=== PATIENT | male | born 1950 | race Caucasian/White ===

== ENCOUNTER 2020-06-21 07:28 | Outpatient (CLI) | payer MEDICARE, SELFPAY ==
[2020-06-21 07:47] LABS: Basophils Absolute Auto 0.06 K/mm3 (0.00-0.10); Basophils Percent Auto 0.9 % (0.0-1.0); Eosinophils Absolute Auto 0.49 K/mm3 (0.02-0.50); Eosinophils Percent Auto 7.6 % (1.0-6.0); Hematocrit 42.1 % (37.0-46.0); Hemoglobin 13.9 g/dL (12.4-15.3); Immature Granulocyte Absolute 0.03 K/mm3 (0.00-0.00); Immature Granulocyte Percent A 0.5 % (0.0-0.0); Lymphocytes Absolute Auto 1.87 K/mm3 (1.10-4.50); Lymphocytes Percent Auto 28.9 % (18.0-42.0); Mean Corpuscular Hemoglobin 31.3 pg (27.0-31.0); Mean Corpuscular Volume 94.8 fL (78.0-102.0); Mean Platelet Volume 9.1 fl (8.7-11.0); Monocytes Absolute Auto 0.76 K/mm3 (0.10-0.90); Monocytes Percent Auto 11.7 % (2.0-11.0); Neutrophils Absolute Auto 3.3 K/mm3 (1.7-7.2); Neutrophils Percent Auto 50.4 % (50.0-70.0); Platelet Count Result 414 K/mm3 (150-420); Red Blood Count 4.44 M/mm3 (4.70-6.10); Red Cell Distribution Width 12.8 % (11.6-14.4); White Blood Count 6.5 K/mm3 (4.8-10.8)
[2020-06-21 08:02] LABS: Add Urine Microscopic? NO; Appearance Urine Clear (Clear); Bilirubin Urine Negative (Negative); Blood Urine Negative (Negative); Color Urine Yellow (Yellow); Glucose Urine UA Negative (Negative); Ketones Urine Negative (Negative); Leukocyte Esterase Ur Negative (Negative); Nitrate Urine Negative (Negative); Protein Urine Negative (Negative); Urobilinogen Urine 0.2 mg/dL (0.2-1.0)
[2020-06-21 08:33] LABS: Alanine Aminotransferase 40 U/L (16-63); Albumin Level 4.2 g/dL (3.4-5.0); Alkaline Phosphatase 56 U/L (46-116); Anion Gap 8 mmol/L (8-16); Aspartate Amino Transferase 16 U/L (15-37); Bilirubin,Total 0.5 mg/dL (0.00-1.00); Blood Urea Nitrogen 20 mg/dL (7-18); Carbon Dioxide 27 mmol/L (21-32); Chloride 106 mmol/L (98-108); Cholesterol 138 mg/dL (0-200); Creatine Kinase 152 U/L (39-308); Estimated Glomerular Filt Rate 53; Glucose 109 mg/dL (70-99); HDL Direct 39 mg/dL (40-60); LDL Cholesterol Calculated 71 mg/dL (<130); Osmolality Calculated 295 mOsm/kg (285-295); Sodium 141 mmol/L (136-145); Total Protein 7.1 g/dL (6.4-8.2); Triglycerides 142 mg/dL (0-150)
== END 2020-06-21 07:29 | disposition home or self-care (01) ==
PROVIDERS: PCP Internal Medicine; Visit Provider Internal Medicine
DX: E78.2 Mixed hyperlipidemia (principal); I10 Essential (primary) hypertension; Z85.46 Personal history of malignant neoplasm of prostate
CPT/HCPCS: 36415; 80053; 80061; 81003; 82550; 85025

== ENCOUNTER 2020-08-24 10:13 | Outpatient (CLI) | payer MEDICARE, SELFPAY ==
[2020-08-24 11:24] LABS: Anion Gap 10 mmol/L (8-16); Blood Urea Nitrogen 18 mg/dL (7-18); Calcium 9.5 mg/dL (8.5-10.1); Carbon Dioxide 27 mmol/L (21-32); Chloride 104 mmol/L (98-108); Estimated Glomerular Filt Rate 60; Glucose 107 mg/dL (70-99); Osmolality Calculated 293 mOsm/kg (285-295); Potassium 4.4 mmol/L (3.5-5.1); Sodium 141 mmol/L (136-145)
[2020-08-24 11:47] LABS: Prostate Specific Antigen < 0.1 ng/mL (< OR = 4.0)
== END 2020-08-24 10:14 | disposition home or self-care (01) ==
PROVIDERS: PCP Internal Medicine
DX: C61 Malignant neoplasm of prostate (principal); N18.2 Chronic kidney disease, stage 2 (mild)
CPT/HCPCS: 36415; 80048; 84153

== ENCOUNTER 2021-08-05 07:01 | Outpatient (CLI) | payer MEDICARE, SELFPAY ==
[2021-08-05 07:12] LABS: Basophils Absolute Auto 0.05 K/mm3 (0.00-0.10); Basophils Percent Auto 0.9 % (0.0-1.0); Eosinophils Absolute Auto 0.41 K/mm3 (0.02-0.50); Eosinophils Percent Auto 7.3 % (1.0-6.0); Hematocrit 44.4 % (37.0-46.0); Hemoglobin 14.8 g/dL (12.4-15.3); Immature Granulocyte Absolute 0.03 K/mm3 (0.00-0.00); Immature Granulocyte Percent A 0.5 % (0.0-0.0); Lymphocytes Absolute Auto 1.62 K/mm3 (1.10-4.50); Lymphocytes Percent Auto 28.8 % (18.0-42.0); Mean Corpuscular HGB Conc 33.3 g/dL (32.0-36.0); Mean Corpuscular Volume 95.9 fL (78.0-102.0); Monocytes Absolute Auto 0.68 K/mm3 (0.10-0.90); Monocytes Percent Auto 12.1 % (2.0-11.0); Neutrophils Absolute Auto 2.8 K/mm3 (1.7-7.2); Neutrophils Percent Auto 50.4 % (50.0-70.0); Platelet Count Result 384 K/mm3 (150-420); Red Blood Count 4.63 M/mm3 (4.70-6.10); Red Cell Distribution Width 12.9 % (11.6-14.4); White Blood Count 5.6 K/mm3 (4.8-10.8)
[2021-08-05 07:17] LABS: Add Urine Microscopic? NO; Appearance Urine Clear (Clear); Bilirubin Urine Negative (Negative); Blood Urine Negative (Negative); Color Urine Yellow (Yellow); Glucose Urine UA Negative (Negative); Ketones Urine Negative (Negative); Leukocyte Esterase Ur Negative (Negative); Nitrate Urine Negative (Negative); Protein Urine Negative (Negative); Urobilinogen Urine 0.2 mg/dL (0.2-1.0); pH Urine 6.5 (5.0-8.0)
[2021-08-05 07:27] LABS: Hemoglobin A1C 5.9 % (<5.7)
[2021-08-05 08:46] LABS: Alanine Aminotransferase 63 U/L (16-63); Alkaline Phosphatase 54 U/L (46-116); Anion Gap 10 mmol/L (8-16); Aspartate Amino Transferase 27 U/L (15-37); Bilirubin,Total 0.7 mg/dL (0.00-1.00); Blood Urea Nitrogen 17 mg/dL (7-18); Calcium 9.2 mg/dL (8.5-10.1); Carbon Dioxide 28 mmol/L (21-32); Chloride 104 mmol/L (98-108); Cholesterol 127 mg/dL (0-200); Creatine Kinase 109 U/L (39-308); Estimated Glomerular Filt Rate 57; Glucose 101 mg/dL (70-99); HDL Direct 43 mg/dL (40-60); LDL Cholesterol Calculated 63 mg/dL (<130); Osmolality Calculated 295 mOsm/kg (285-295); Potassium 4.6 mmol/L (3.5-5.1); Sodium 142 mmol/L (136-145); Total Protein 6.9 g/dL (6.4-8.2); Triglycerides 107 mg/dL (0-150)
== END 2021-08-05 07:02 | disposition home or self-care (01) ==
LOC: CHSLAB 07:02
PROVIDERS: PCP Internal Medicine; Visit Provider Internal Medicine
DX: R73.01 Impaired fasting glucose (principal); I10 Essential (primary) hypertension; E78.2 Mixed hyperlipidemia
CPT/HCPCS: 36415; 80053; 80061; 81003; 82550; 83036; 85025

== ENCOUNTER 2022-02-15 11:43 | Outpatient (CLI) | payer MEDICARE, SELFPAY ==
[2022-02-15 12:11] LABS: Basophils Absolute Auto 0.05 K/mm3 (0.00-0.10); Basophils Percent Auto 0.9 % (0.0-1.0); Eosinophils Absolute Auto 0.48 K/mm3 (0.02-0.50); Eosinophils Percent Auto 8.2 % (1.0-6.0); Hematocrit 43.3 % (37.0-46.0); Hemoglobin 14.9 g/dL (12.4-15.3); Immature Granulocyte Absolute 0.01 K/mm3 (0.00-0.00); Immature Granulocyte Percent A 0.2 % (0.0-0.0); Lymphocytes Absolute Auto 1.83 K/mm3 (1.10-4.50); Lymphocytes Percent Auto 31.3 % (18.0-42.0); Mean Corpuscular HGB Conc 34.4 g/dL (32.0-36.0); Mean Corpuscular Hemoglobin 32.3 pg (27.0-31.0); Mean Corpuscular Volume 93.7 fL (78.0-102.0); Mean Platelet Volume 9.2 fl (8.7-11.0); Monocytes Absolute Auto 0.77 K/mm3 (0.10-0.90); Monocytes Percent Auto 13.2 % (2.0-11.0); Neutrophils Absolute Auto 2.7 K/mm3 (1.7-7.2); Neutrophils Percent Auto 46.2 % (50.0-70.0); Platelet Count Result 390 K/mm3 (150-420); Red Blood Count 4.62 M/mm3 (4.70-6.10); Red Cell Distribution Width 12.7 % (11.6-14.4); White Blood Count 5.8 K/mm3 (4.8-10.8)
[2022-02-15 12:12] LABS: Add Urine Microscopic? YES; Appearance Urine Clear (Clear); Bilirubin Urine Negative (Negative); Blood Urine Negative (Negative); Color Urine Yellow (Yellow); Glucose Urine UA Negative (Negative); Ketones Urine Negative (Negative); Leukocyte Esterase Ur Trace (Negative); Nitrate Urine Negative (Negative); Protein Urine Negative (Negative); Specific Grav Ur >= 1.030 (1.010-1.020); Urobilinogen Urine 0.2 mg/dL (0.2-1.0); pH Urine 5.5 (5.0-8.0)
[2022-02-15 12:18] LABS: Bacteria Urine Trace /hpf; Mucus Urine Few /lpf; RBC Urine None seen /hpf (0-2); Squamous Epithelial Cell Urine Few /hpf (Few)
[2022-02-15 12:30] LABS: Hemoglobin A1C 5.8 % (<5.7)
[2022-02-15 13:31] LABS: Alanine Aminotransferase 60 U/L (16-63); Alkaline Phosphatase 69 U/L (46-116); Anion Gap 8 mmol/L (8-16); Aspartate Amino Transferase 30 U/L (15-37); Bilirubin,Total 0.5 mg/dL (0.00-1.00); Blood Urea Nitrogen 22 mg/dL (7-18); Calcium 9.1 mg/dL (8.5-10.1); Carbon Dioxide 25 mmol/L (21-32); Chloride 103 mmol/L (98-108); Cholesterol 129 mg/dL (0-200); Creatine Kinase 117 U/L (39-308); Estimated Glomerular Filt Rate 58; Glucose 107 mg/dL (70-99); HDL Direct 44 mg/dL (40-60); LDL Cholesterol Calculated 51 mg/dL (<130); Osmolality Calculated 285 mOsm/kg (285-295); Potassium 4.3 mmol/L (3.5-5.1); Sodium 136 mmol/L (136-145); Total Protein 6.9 g/dL (6.4-8.2); Triglycerides 172 mg/dL (0-150)
[2022-02-15 13:42] LABS: Prostate Specific Antigen < 0.1 ng/mL (< OR = 4.0)
== END 2022-02-15 11:44 | disposition home or self-care (01) ==
LOC: CHSLAB 11:47
PROVIDERS: PCP Internal Medicine; Visit Provider Internal Medicine
DX: R73.01 Impaired fasting glucose (principal); E78.2 Mixed hyperlipidemia; I10 Essential (primary) hypertension; Z85.46 Personal history of malignant neoplasm of prostate
CPT/HCPCS: 36415; 80053; 80061; 81001; 82550; 83036; 84153; 85025

== ENCOUNTER 2023-01-03 06:55 | Outpatient (CLI) | payer MEDICARE, SELFPAY ==
[2023-01-03 07:18] LABS: Appearance Urine Clear (Clear); Basophils Absolute Auto 0.04 K/mm3 (0.00-0.10); Basophils Percent Auto 0.6 % (0.0-1.0); Bilirubin Urine Negative (Negative); Blood Urine Negative (Negative); Color Urine Yellow (Yellow); Eosinophils Absolute Auto 0.36 K/mm3 (0.02-0.50); Eosinophils Percent Auto 5.6 % (1.0-6.0); Glucose Urine UA Negative (Negative); Hematocrit 43.3 % (37.0-46.0); Hemoglobin 15.1 g/dL (12.4-15.3); Immature Granulocyte Absolute 0.03 K/mm3 (0.00-0.00); Immature Granulocyte Percent A 0.5 % (0.0-0.0); Ketones Urine Negative (Negative); Leukocyte Esterase Ur Negative LEU/UL (Negative); Lymphocytes Absolute Auto 1.57 K/mm3 (1.10-4.50); Lymphocytes Percent Auto 24.6 % (18.0-42.0); Mean Corpuscular HGB Conc 34.9 g/dL (32.0-36.0); Mean Corpuscular Volume 94.5 fL (78.0-102.0); Mean Platelet Volume 8.9 fl (8.7-11.0); Monocytes Absolute Auto 0.67 K/mm3 (0.10-0.90); Monocytes Percent Auto 10.5 % (2.0-11.0); Neutrophils Absolute Auto 3.7 K/mm3 (1.7-7.2); Neutrophils Percent Auto 58.2 % (50.0-70.0); Nitrate Urine Negative (Negative); Platelet Count Result 362 K/mm3 (150-420); Protein Urine Negative (Negative); Red Blood Count 4.58 M/mm3 (4.70-6.10); Red Cell Distribution Width 13.5 % (11.6-14.4); White Blood Count 6.4 K/mm3 (4.8-10.8)
[2023-01-03 07:22] LABS: Add Urine Microscopic? NO
[2023-01-03 07:28] LABS: Hemoglobin A1C 5.9 % (<5.7)
[2023-01-03 07:47] LABS: Alanine Aminotransferase 45 U/L (16-63); Alkaline Phosphatase 52 U/L (46-116); Anion Gap 8 mmol/L (8-16); Aspartate Amino Transferase 23 U/L (15-37); Bilirubin,Total 0.7 mg/dL (0.00-1.00); Blood Urea Nitrogen 19 mg/dL (7-18); Calcium 8.8 mg/dL (8.5-10.1); Carbon Dioxide 29 mmol/L (21-32); Chloride 105 mmol/L (98-108); Cholesterol 130 mg/dL (0-200); Estimated Glomerular Filt Rate 60; Glucose 101 mg/dL (70-99); HDL Direct 38 mg/dL (40-60); LDL Cholesterol Calculated 69 mg/dL (<130); Osmolality Calculated 296 mOsm/kg (285-295); Potassium 4.4 mmol/L (3.5-5.1); Sodium 142 mmol/L (136-145); Total Protein 7.1 g/dL (6.4-8.2); Triglycerides 113 mg/dL (0-150)
[2023-01-03 08:03] LABS: Prostate Specific Antigen < 0.1 ng/mL (< OR = 4.0)
== END 2023-01-03 06:56 | disposition home or self-care (01) ==
LOC: CHSLAB 06:57
PROVIDERS: PCP Internal Medicine; Visit Provider Internal Medicine
DX: E78.2 Mixed hyperlipidemia (principal); I10 Essential (primary) hypertension; R73.01 Impaired fasting glucose; N39.0 Urinary tract infection, site not specified; N40.1 Benign prostatic hyperplasia with lower urinary tract symptoms
CPT/HCPCS: 36415; 80053; 80061; 81003; 83036; 84153; 85025

== ENCOUNTER 2023-08-30 06:49 | Outpatient (CLI) | payer MEDICARE, SELFPAY ==
[2023-08-30 07:04] LABS: Appearance Urine Clear (Clear); Basophils Absolute Auto 0.08 K/mm3 (0.00-0.10); Basophils Percent Auto 1.3 % (0.0-1.0); Bilirubin Urine Negative (Negative); Blood Urine Negative (Negative); Color Urine Light Yellow (Yellow); Eosinophils Absolute Auto 0.31 K/mm3 (0.02-0.50); Eosinophils Percent Auto 4.9 % (1.0-6.0); Glucose Urine UA Negative (Negative); Hematocrit 45.5 % (37.0-46.0); Hemoglobin 15.7 g/dL (12.4-15.3); Immature Granulocyte Absolute 0.03 K/mm3 (0.00-0.00); Immature Granulocyte Percent A 0.5 % (0.0-0.0); Ketones Urine Negative (Negative); Leukocyte Esterase Ur Negative LEU/UL (Negative); Lymphocytes Absolute Auto 1.66 K/mm3 (1.10-4.50); Lymphocytes Percent Auto 26.3 % (18.0-42.0); Mean Corpuscular HGB Conc 34.5 g/dL (32.0-36.0); Mean Corpuscular Hemoglobin 33.1 pg (27.0-31.0); Mean Corpuscular Volume 95.8 fL (78.0-102.0); Monocytes Absolute Auto 0.62 K/mm3 (0.10-0.90); Monocytes Percent Auto 9.8 % (2.0-11.0); Neutrophils Absolute Auto 3.6 K/mm3 (1.7-7.2); Neutrophils Percent Auto 57.2 % (50.0-70.0); Nitrate Urine Negative (Negative); Platelet Count Result 393 K/mm3 (150-420); Protein Urine Negative (Negative); Red Blood Count 4.75 M/mm3 (4.70-6.10); Red Cell Distribution Width 12.9 % (11.6-14.4); Specific Grav Ur 1.015 (1.010-1.020); Urobilinogen Urine 0.2 mg/dL (0.2-1.0); White Blood Count 6.3 K/mm3 (4.8-10.8); pH Urine 6.5 (5.0-8.0)
[2023-08-30 07:07] LABS: Add Urine Microscopic? NO
[2023-08-30 07:13] LABS: Hemoglobin A1C 5.9 % (<5.7)
[2023-08-30 07:51] LABS: Alanine Aminotransferase 50 U/L (16-63); Albumin Level 4.2 g/dL (3.4-5.0); Alkaline Phosphatase 49 U/L (46-116); Anion Gap 3 mmol/L (8-16); Aspartate Amino Transferase 21 U/L (15-37); Bilirubin,Total 0.7 mg/dL (0.00-1.00); Blood Urea Nitrogen 19 mg/dL (7-18); Calcium 9.4 mg/dL (8.5-10.1); Carbon Dioxide 32 mmol/L (21-32); Chloride 102 mmol/L (98-108); Cholesterol 138 mg/dL (0-200); Creatine Kinase 80 U/L (39-308); Estimated Glomerular Filt Rate 51; Glucose 112 mg/dL (70-99); HDL Direct 44 mg/dL (40-60); LDL Cholesterol Calculated 67 mg/dL (<130); Osmolality Calculated 287 mOsm/kg (285-295); Potassium 4.3 mmol/L (3.5-5.1); Sodium 137 mmol/L (136-145); Triglycerides 137 mg/dL (0-150)
== END 2023-08-30 06:50 | disposition home or self-care (01) ==
LOC: CHSLAB 06:51
PROVIDERS: PCP Internal Medicine; Visit Provider Internal Medicine
DX: N39.0 Urinary tract infection, site not specified (principal); E78.2 Mixed hyperlipidemia; I10 Essential (primary) hypertension; R73.01 Impaired fasting glucose
CPT/HCPCS: 36415; 80053; 80061; 81003; 82550; 83036; 85025

== ENCOUNTER 2023-09-28 11:22 | Outpatient (CLI) | payer MEDICARE, SELFPAY ==
[2023-09-28 12:18] LABS: Anion Gap 5 mmol/L (8-16); Blood Urea Nitrogen 15 mg/dL (7-18); Calcium 9.6 mg/dL (8.5-10.1); Carbon Dioxide 33 mmol/L (21-32); Chloride 102 mmol/L (98-108); Estimated Glomerular Filt Rate 56; Glucose 104 mg/dL (70-99); Osmolality Calculated 290 mOsm/kg (285-295); Potassium 4.4 mmol/L (3.5-5.1); Sodium 140 mmol/L (136-145)
== END 2023-09-28 11:23 | disposition home or self-care (01) ==
LOC: CHSLAB 11:24
PROVIDERS: PCP Internal Medicine; Visit Provider Internal Medicine
DX: I10 Essential (primary) hypertension (principal)
CPT/HCPCS: 36415; 80048

== ENCOUNTER 2024-04-05 07:22 | Outpatient (CLI) | payer MEDICARE, SELFPAY ==
[2024-04-05 08:33] LABS: Hematocrit 44.7 % (37.0-46.0); Hemoglobin 15.5 g/dL (12.4-15.3); Mean Corpuscular HGB Conc 34.7 g/dL (32-36); Mean Corpuscular Hemoglobin 32.4 pg (27.0-31.0); Mean Corpuscular Volume 93.3 fL (78.0-102.0); Mean Platelet Volume 9.1 fl (8.7-11.0); Platelet Count Result 352 K/mm3 (150-420); Red Blood Count 4.79 M/mm3 (4.70-6.10); Red Cell Distribution Width 12.6 % (11.6-14.4); White Blood Count 5.9 K/mm3 (4.8-10.8)
[2024-04-05 08:48] LABS: Alanine Aminotransferase 28 U/L (16-63); Albumin Level 3.8 g/dL (3.4-5.0); Alkaline Phosphatase 42 U/L (46-116); Anion Gap 9 mmol/L (4-12); Aspartate Amino Transferase 16 U/L (15-37); Bilirubin,Total 0.5 mg/dL (0.00-1.00); Blood Urea Nitrogen 19 mg/dL (7-18); Calcium 8.8 mg/dL (8.5-10.1); Carbon Dioxide 26 mmol/L (21-32); Chloride 106 mmol/L (98-108); Cholesterol 117 mg/dL (0-200); Estimated Glomerular Filt Rate 57; Glucose 113 mg/dL (70-99); HDL Direct 39 mg/dL (40-60); Hemoglobin A1C 5.3 % (<5.7); LDL Cholesterol Calculated 60 mg/dL (<130); Osmolality Calculated 295 mOsm/kg (285-295); Sodium 141 mmol/L (136-145); Total Protein 7.1 g/dL (6.4-8.2); Triglycerides 92 mg/dL (0-150)
[2024-04-05 13:58] LABS: Appearance Urine Clear (Clear); Bilirubin Urine Negative (Negative); Blood Urine Negative (Negative); Color Urine Yellow (Yellow); Glucose Urine UA Negative (Negative); Ketones Urine Negative (Negative); Leukocyte Esterase Ur Trace LEU/UL (Negative); Nitrate Urine Negative (Negative); Protein Urine Trace (Negative); Specific Grav Ur 1.025 (1.010-1.020); Urobilinogen Urine 0.2 mg/dL (0.2-1.0)
[2024-04-05 14:02] LABS: Add Urine Microscopic? YES
[2024-04-05 14:05] LABS: Mucus Urine Moderate /lpf; RBC Urine 0-2 /hpf (0-2); WBC Urine 0-3 /hpf (0-3)
== END 2024-04-05 07:23 | disposition home or self-care (01) ==
PROVIDERS: PCP Internal Medicine; Visit Provider Internal Medicine
DX: Z12.5 Encounter for screening for malignant neoplasm of prostate (principal); E78.2 Mixed hyperlipidemia; I10 Essential (primary) hypertension; N39.0 Urinary tract infection, site not specified; R73.01 Impaired fasting glucose
CPT/HCPCS: 36415; 80053; 80061; 81001; 83036; 85027

== ENCOUNTER 2024-12-08 06:54 | Outpatient (CLI) | payer MEDICARE, SELFPAY ==
--- OUTSIDE RECORDS SUMMARY | 2024-12-08 07:00 | XMS_ITS | Clinical Summary ---
Author Organization [facility] Address [address] [place] [address] Care Team Providers Care Cash Grain Farmer Name Role Phone Carolee Corona MD Primary Care Provider [phone] Allergies No known active allergies Medications fenofibrate 150 mg capsule Active ibuprofen (ibuprofen) 200 mg tab/cap Active amLODIPine (NORVASC) 10 mg tablet 10/08/2018 Active Active Problems No known active problems Surgical History Surgery Date Site/Laterality Comments KNEE SURGERY Knee Surgery - (Added by Conv) Family History Medical History Relation Name Comments Prostate cancer Father Family histo ry of malignant neoplasm of prostate - (Added by Conv) Heart attack Mother Family history of myocardial infarction - (Added by Conv) Stroke Mother Family history of cerebrovascular accident (CVA) - (Added by Conv) Relation Name Status Comments Father Mother Social History Tobacco Use Types Packs/Day Years Used Date Smoking Tobacco: Every Day Personal Safety Answer Date Recorded Getting School Help Needed Not on file 12/07 Sex and Gender Information Value Date Recorded Sex Assigned at Not on file Legal Sex Male 1:26 PM DELICATE FABRICS PRESSER Gender Identity Not on file Sexual Orientation Not on file Obstetrics History Last Filed Vital Signs Vital Sign Reading Time Taken Comments Blood Pressure 132/93 09/11/2017 1:31 PM DELICATE FABRICS PRESSER Pulse 106 09/11/2017 1:31 PM DELICATE FABRICS PRESSER Temperature - - Respiratory Rate - - Oxygen Saturation 96% 09/04/2017 8:20 AM DELICATE FABRICS PRESSER Inhaled Oxygen Concentration - - Weight 106.6 kg (234 lb 15.8 oz) 09/03/2017 4:55 PM DELICATE FABRICS PRESSER Height 182.9 cm (6') 09/03/2017 4:55 PM DELICATE FABRICS PRESSER Body Mass Index 31.87 09/03/2017 4:55 PM DELICATE FABRICS PRESSER Plan of Treatment Not on file Insurance MEDICARE MEDICARE Advance Directives For more information, please contact: [phone] Documents on File Type Date Recorded Patient Senior Architect Expl anation ADVANCE DIRECTIVE 09/13/2017 8:38 AM Care Teams Cash Grain Farmer Relationship Specialty Start Date End Date Carolee Corona MD [address] [place] [address] [facility] - General 08/14/17
--- OUTSIDE RECORDS SUMMARY | 2024-12-08 07:00 | XMS_ITS | Referral Summary ---
Author Organization [facility] Address [address] [place] [address] Care Team Providers Care Frothing Machine Operator Name Role Phone Carolee Corona MD Primary Care Provider [phone] Allergies No known active allergies Medications fenofibrate 150 mg capsule Active ibuprofen (ibuprofen) 200 mg tab/cap Active amLODIPine (NORVASC) 10 mg tablet 10/08/2018 Active Active Problems No known active problems Social History Tobacco Use Types Packs/Day Years Used Date Smoking Tobacco: Every Day Personal Safety Answer Date Recorded Getting School Help Needed Not on file 12/07 Sex and Gender Information Value Date Recorded Sex Assigned at Not on file Legal Sex Male 1:26 PM NUTRITION WORKER Gender Identity Not on file Sexual Orientation Not on file Last Filed Vital Signs Vital Sign Reading Time Taken Comments Blood Pressure 132/93 09/11/2017 1:31 PM NUTRITION WORKER Pulse 106 09/11/2017 1:31 PM NUTRITION WORKER Temperature - - Respiratory Rate - - Oxygen Saturation 96% 09/04/2017 8:20 AM NUTRITION WORKER Inhaled Oxygen Concentration - - Weight 106.6 kg (234 lb 15.8 oz) 09/03/2017 4:55 PM NUTRITION WORKER Height 182.9 cm (6') 09/03/2017 4:55 PM NUTRITION WORKER Body Mass Index 31.87 09/03/2017 4:55 PM NUTRITION WORKER Plan of Treatment Not on file Insurance MEDICARE MEDICARE Advance Directives For more information, please contact: [phone] Documents on File Type Date Recorded Patient Care Manager Expl anation ADVANCE DIRECTIVE 09/13/2017 8:38 AM Care Teams Frothing Machine Operator Relationship Specialty Start Date End Date Carolee Corona MD [address] [place] [address] PCP - General 08/14/17
--- OUTSIDE RECORDS SUMMARY | 2024-12-08 07:00 | XMS_ITS | Encounter Summary ---
Author Organization [facility] Address [address] [place] [address] Phone Care Team Providers Care Contract Mail Carrier Name Role Phone Carolee Corona MD Primary Care Provider [phone] Encounter Details Date Type Department Care Team (Late st Contact Info) Description 06/21/2020 Telephone [facility] - [facility] Urology [address] [place] [phone] Elissa Duque MA Social History Tobacco Use Types Packs/Day Years Used Date Smoking Tobacco: Every Day Sex and Gender Information Value Date Recorded Sex Assigned at Not on file Legal Sex Male 1:26 PM UKE DRIVER Gender Identity Not on file Sexual Orientation Not on file documented as of this encounter Plan of Treatment Not on file documented as of this encounter Visit Diagnoses Not on filedocumented in this encounter Care Teams Contract Mail Carrier Relationship Specialty Start Date End Date Carolee Corona MD [address] [place] [address] PCP - General 08/14/17 documented as of this encounter
[2024-12-08 07:21] LABS: Add Urine Microscopic? NO; Appearance Urine Clear (Clear); Bilirubin Urine Negative (Negative); Blood Urine Trace-intact (Negative); Color Urine Light Yellow (Yellow); Glucose Urine UA Negative (Negative); Hematocrit 45.7 % (37.0-46.0); Hemoglobin 15.3 g/dL (12.4-15.3); Ketones Urine Negative (Negative); Leukocyte Esterase Ur Negative (Negative); Mean Corpuscular HGB Conc 33.5 g/dL (32-36); Mean Corpuscular Hemoglobin 32.1 pg (27.0-31.0); Mean Platelet Volume 9.1 fl (8.7-11.0); Nitrate Urine Negative (Negative); Platelet Count Result 402 K/mm3 (150-420); Protein Urine Negative (Negative); Red Blood Count 4.76 M/mm3 (4.70-6.10); Red Cell Distribution Width 12.8 % (11.6-14.4); Urobilinogen Urine 0.2 mg/dL (0.2-1.0); White Blood Count 7.1 K/mm3 (4.8-10.8)
[2024-12-08 07:29] LABS: Hemoglobin A1C 5.9 % (<5.7)
[2024-12-08 08:39] LABS: Alanine Aminotransferase 45 U/L (16-63); Albumin Level 4.1 g/dL (3.4-5.0); Alkaline Phosphatase 65 U/L (46-116); Anion Gap 6 mmol/L (4-12); Aspartate Amino Transferase 14 U/L (15-37); Bilirubin,Total 0.6 mg/dL (0.00-1.00); Blood Urea Nitrogen 17 mg/dL (7-18); Calcium 9.8 mg/dL (8.5-10.1); Carbon Dioxide 30 mmol/L (21-32); Chloride 106 mmol/L (98-108); Cholesterol 141 mg/dL (0-200); Creatine Kinase 77 U/L (39-308); Estimated Glomerular Filt Rate 59; Glucose 109 mg/dL (70-99); HDL Direct 48 mg/dL (40-60); LDL Cholesterol Calculated 64 mg/dL (<130); Osmolality Calculated 296 mOsm/kg (285-295); Potassium 4.4 mmol/L (3.5-5.1); Prostate Specific Antigen < 0.1 ng/mL (< OR = 4.0); Sodium 142 mmol/L (136-145); Total Protein 7.1 g/dL (6.4-8.2); Triglycerides 144 mg/dL (0-150)
== END 2024-12-08 06:55 | disposition home or self-care (01) ==
LOC: CHSLAB 06:58
PROVIDERS: PCP Internal Medicine; Visit Provider Internal Medicine
DX: E78.2 Mixed hyperlipidemia (principal); M15.9 Polyosteoarthritis, unspecified; I10 Essential (primary) hypertension; Z85.46 Personal history of malignant neoplasm of prostate; R73.01 Impaired fasting glucose
CPT/HCPCS: 36415; 80053; 80061; 81003; 82550; 83036; 84153; 85027

== ENCOUNTER 2025-01-20 14:10 | Outpatient (CLI) | payer MEDICARE, SELFPAY ==
--- NOTE | ~2025-01-20 | XR_ITS ---
Clinical Indication: Wheezing, cough PA and lateral views of the chest: Comparison: None Findings: There is hazy airspace opacity at the lingula. Right lung clear. Cardiomediastinal silhoue tte is within normal limits. Bones and soft tissues are unremarkable. Impression: Suspected focal lingular pneumonia. Reviewed, dictated and finalized at [facility]. Impression: Suspected focal lingular pneumonia.
[2025-01-20 14:28] LABS: Hematocrit 45.3 % (37.0-46.0); Hemoglobin 15.3 g/dL (12.4-15.3); Mean Corpuscular HGB Conc 33.8 g/dL (32-36); Mean Corpuscular Volume 94.8 fL (78.0-102.0); Platelet Count Result 395 K/mm3 (150-420); Red Blood Count 4.78 M/mm3 (4.70-6.10); Red Cell Distribution Width 12.5 % (11.6-14.4)
[2025-01-20 15:04] LABS: Influenza A QL RT-PCR Negative (Negative); Influenza B QL RT-PCR Negative (Negative); RSV RNA, RT-PCR Negative (Negative); SARS-CoV-2 RNA PCR Negative (Negative)
--- OUTSIDE RECORDS SUMMARY | 2025-01-20 15:30 | XMS_ITS | Encounter Summary ---
Author Organization [facility] Address [address] [place] [address] Phone Care Team Providers Care Vegetable Picker Name Role Phone Carolee Corona MD Primary Care Provider [phone] Encounter Details Date Type Department Care Team (Late st Contact Info) Description 06/21/2020 Telephone [facility]) - [facility] Urology [address] [place] [address] Medical Office Building [address] [place] [phone] Elissa Duque MA Social History Tobacco Use Types Packs/Day Years Used Date Smoking Tobacco: Every Day Sex and Gender Information Value Date Recorded Sex Assigned at Not on file Legal Sex Male 1:26 PM BATT PACKER Gender Identity Not on file Sexual Orientation Not on file documented as of this encounter Plan of Treatment Not on file documented as of this encounter Visit Diagnoses Not on filedocumented in this encounter Care Teams Vegetable Picker Relationship Specialty Start Date End Date Carolee Corona MD [address] [place] [address] PCP - General 08/14/17 documented as of this encounter
--- OUTSIDE RECORDS SUMMARY | 2025-01-20 15:30 | XMS_ITS | Clinical Summary ---
Author Organization [facility] [employer] Address [address] [place] [address] Care Team Providers Care R D Engineer Name Role Phone Smooth Baron MD Primary Care Provider [phone] Adiel Vizcarra MD Unavailable [phone] Nathalie Mckenzie MD Unavailable [phone] Source Comments [facility],non-owned Affiliates and Associated Physician Practices is amultiple site organization consisting of ambulatory clinics and hospital sitesin [place], [place], [place] and [place]. This disclosure is being madepursuant to the Care Everywhere program and may not contain all information available regarding this patient. Last updated 18.[facility] [employer] Allergies No known active allergies Medications * Be aware that medications may not be up to date on this document. Alwaysverify current medications with the patient. amLODIPine (NORVASC) 10 MG tablet Take 10 mg by mouth once daily 1 Active fenofibrate (LOFIBRA) 160 MG tablet Take 160 mg by mouth once daily Active loratadine-pseu doephedrine 24hr (CLARITIN-D 24 HOUR) 10-240 MG tablet Take 1 tablet by mouth once daily as needed for Nasal Congestion or Runny Nose Active docusate sodium (COLACE) 100 MG capsule Take 100 mg by mouth once daily as needed for Constipation Active celecoxib (CELEBREX) 200 MG capsule Take 1 (one) capsule by mouth 2 times daily 60 capsule 2 Active HYDROcodone-edison taminophen ([place]) 10-325 MG tablet TAKE HALF TO ONE TABLET BY MOUTH EVERY SIX HOURS NEEDED FOR PAIN 28 tablet 2 Active Active Problems Problem Noted Date Diagnosed Date Primary osteoarthritis of both knees 12/20/2021 Social History Tobacco Use Types Packs/Day Years Used Date Smoking Tobacco: Some Days Cigars Smokeless Tobacco: Never Comments:Smokes Cigar Occasi onally Alcohol Use Standard Drinks/Week Comments Not Currently 0 (1 standard drink = 0.6 oz pur e alcohol) AUDIT-C Answer Date Recorded Q1: How often do you have a drink containing alc ohol? Monthly or less 04/10/2022 Q2: How many drinks containi ng alcohol do you have on a typical day when you are drinking? 1 or 2 04/10/2022 Q3: How often do you have si x or more drinks on one occasion? Never 04/10/2022 Hunger Vital Sign Answer Date Recorded Within the past 12 months, y ou worried that your food would run out before you got the money to buy more. Never true 04/11/20 22 Within the past 12 months, t he food you bought just didn't last and you didn't have money to get more. Never true 04/11/2022 Sex and Gender Information Value Date Recorded Sex Assigned at Not on file Legal Sex Male 1:59 PM RIVETING MACHINE OPERATOR Gender Identity Not on file Sexual Orientation Not on file Last Filed Vital Signs Vital Sign Reading Time Taken Comments Blood Pressure 147/80 04/11/2022 10:09 AM CDT Pulse 86 04/11/2022 10:09 AM CDT Temperature 36.5 C (97.7 F) 04/11/2022 8:06 AM CDT Respiratory Rate 16 04/11/2022 8:06 AM CDT Oxygen Saturation 95% 04/11/2022 8:06 AM CDT Inhaled Oxygen Concentration - - Weight 115.7 kg (255 lb) 04/10/2022 7:55 AM CDT Height 177.8 cm (5' 10 ) 04/10/2022 7:55 AM CDT Body Mass Index 36.59 04/10/2022 7:55 AM CDT Plan of Treatment Health Maintenance Due Date Last Done Comments KIMBERLY (AGES 45-75) - COL ON CA SCREENING 1951 COLON MONITORING 1951 COLONOSCOPY - COLON CA SCREENING 1951 CT COLONOGRAPHY - COLON CA SCREENING 1950 Colorectal Cancer Screening 1950 FIT - COLON CA SCREENING 1951 FLEX SIG - COLON CA SCREENING 1951 LIPID TESTING 1950 MEDICARE AWV 12 MONTHS 1951 HEPATITIS C SCREENING 11/08/1969 DTAP/TDAP/TD VACCINES (1 - Tdap) 1970 PNEUMOCOCCAL VACCINE 50+ (1 of 2 - PCV) 1970 ZOSTER VACCINE (1 of 2) 2001 AAA SCREENING 2016 SCREENING FOR DIABETES 12/13/2021 COVID-19 VACCINE (3 - 2023-2 5 season) 2024 12/24/2020, 11/26/2020 DEPRESSION SCREENING 09/24/2024 INFLUENZA VACCINE (Season Ended) 2025 06/21/2020 Respiratory Syncytial Virus (RSV) Vaccine Pt: or over 60 yrs (1 - 1-dose 75+ series) 2026 HEPATITIS B VACCINE Aged Out No longe r eligible based on patient's age to complete this topic HIB VACCINE Aged Out No longer eligi ble based on patient's age to complete this topic HPV VACCINE Aged Out No longer eligi ble based on patient's age to complete this topic MENINGOCOCCAL (Group B) VACCINE SHARED DECISION-MAKING Aged Out No longer eligible based on patient's age to complete this topic MENINGOCOCCAL GROUPS A/C/Y/W VACCINE Aged Out No longer eligible b ased on patient's age to complete this topic Medical Devices Implanted Type Area Chili Maker Device Identifier Shelf Expiration Date Model / Serial / Lot Cmnt Bone Djo Srg Cblt 40gm Hvisc Strl Implanted:Qty: 2 on 04/10/2022 by Adiel Vizcarra MD at [facility] Left: Knee DJ Orthopedics 04/06/2023 600-15-000 / / [id number] Tray Tib 83mm Kn Cocr I Beam Implanted:Qty: 1 on 04/10/2022 by Adiel Vizcarra MD at [facility] Left: Knee Santi Biomet 02/25/2031 [id number] / / [id number] Cmpnt Fem Kn Lt Cr Cmnt Prm Vngrd Intlk Implanted:Qty: 1 on 04/10/2022 by Adiel Vizcarra MD at [facility] Left: Knee [employer] 09/08/2027 [id number] / / [id number] Cmpnt Ptlr 28mm 1 Pg Wire Ascnt Arcm Kn Implanted:Qty: 1 on 04/10/2022 by Adiel Vizcarra MD at [facility] Left: Knee S[employer] 03/02/2027 [id number] / / [id number] Vngrd Arcm Kn Ant Stab Implanted:Qty: 1 on 04/10/2022 by Adiel Vizcarra MD at [facility] Left: Knee S[employer]omet 02/06/2027 [id number] / / [id number] Insurance MEDICARE [employer] GENERIC Advance Directives * Full Code (Latest Code Status on File) Date Activated Date Inactivated Comments 04/10/2022 12:47 PM 04/11/2022 2:44 PM Care Teams R D Engineer Relationship Specialty Start Date End Date Smooth Baron MD [address] [place] [address] PCP - General Internal Medicine 12/13/21 [place] [address] [place] [address] Surgeon Orthopedic Surgery 12/13/21 [place] [address] [place] [address] Cardiovascular Disease 03/22/22
--- OUTSIDE RECORDS SUMMARY | 2025-01-20 15:30 | XMS_ITS | Referral Summary ---
Author Organization [facility] Address [address] [place] [address] Care Team Providers Care Latent Fingerprint Examiner Name Role Phone Carolee Corona MD Primary Care Provider [phone] Allergies No known active allergies Medications fenofibrate [...] on file Legal Sex Male 1:26 PM TRAFFIC CONTROL SPECIALIST Gender Identity Not on file Sexual Orientation Not on file Last Filed Vital Signs Vital Sign Reading Time Taken Comments Blood Pressure 132/93 09/11/2017 1:31 PM TRAFFIC CONTROL SPECIALIST Pulse 106 09/11/2017 1:31 PM TRAFFIC CONTROL SPECIALIST Temperature - - Respiratory Rate - - Oxygen Saturation 96% 09/04/2017 8:20 AM TRAFFIC CONTROL SPECIALIST Inhaled Oxygen Concentration - - Weight 106.6 kg (234 lb 15.8 oz) 09/03/2017 4:55 PM TRAFFIC CONTROL SPECIALIST Height 182.9 cm (6') 09/03/2017 4:55 PM TRAFFIC CONTROL SPECIALIST Body Mass Index 31.87 09/03/2017 4:55 PM TRAFFIC CONTROL SPECIALIST Plan of Treatment Not on file Insurance MEDICARE MEDICARE Advance Directives For more information, please contact: [phone] Documents on File Type Date Recorded Patient Radioisotope Production Operator Expl anation ADVANCE DIRECTIVE 09/13/2017 8:38 AM Care Teams Latent Fingerprint Examiner Relationship Specialty Start Date End Date Carolee Corona MD [address] [place] [address] PCP - General 08/14/17
--- OUTSIDE RECORDS SUMMARY | 2025-01-20 15:30 | XMS_ITS | Clinical Summary ---
Author Organization [facility] Address [address] [place] [address] Care Team Providers Care Electrical Engineering Drafting Officer Name Role Phone Carolee Corona MD Primary Care Provider [phone] Allergies No known active allergies Medications fenofibrate [...] on file Legal Sex Male 1:26 PM ARMATURE WINDER HELPER REPAIR Gender Identity Not on file Sexual Orientation Not on file Obstetrics History Last Filed Vital Signs Vital Sign Reading Time Taken Comments Blood Pressure 132/93 09/11/2017 1:31 PM ARMATURE WINDER HELPER REPAIR Pulse 106 09/11/2017 1:31 PM ARMATURE WINDER HELPER REPAIR Temperature - - Respiratory Rate - - Oxygen Saturation 96% 09/04/2017 8:20 AM ARMATURE WINDER HELPER REPAIR Inhaled Oxygen Concentration - - Weight 106.6 kg (234 lb 15.8 oz) 09/03/2017 4:55 PM ARMATURE WINDER HELPER REPAIR Height 182.9 cm (6') 09/03/2017 4:55 PM ARMATURE WINDER HELPER REPAIR Body Mass Index 31.87 09/03/2017 4:55 PM ARMATURE WINDER HELPER REPAIR Plan of Treatment Not on file Insurance MEDICARE MEDICARE Advance Directives For more information, please contact: [phone] Documents on File Type Date Recorded Patient Roll Hand Expl anation ADVANCE DIRECTIVE 09/13/2017 8:38 AM Care Teams Electrical Engineering Drafting Officer Relationship Specialty Start Date End Date Carolee Corona MD [address] [place] [address] [facility] - General 08/14/17
== END 2025-01-20 14:11 | disposition home or self-care (01) ==
LOC: CHSLAB 14:13
PROVIDERS: PCP Internal Medicine; Visit Provider Internal Medicine
DX: R05.9 Cough, unspecified (principal); J18.9 Pneumonia, unspecified organism
CPT/HCPCS: 36415; 71046; 85027; 87637

== ENCOUNTER 2025-01-26 13:05 | Outpatient (CLI) | payer MEDICARE, SELFPAY ==
--- NOTE | ~2025-01-26 | XR_ITS ---
XR chest 2V Ordering provider: Smooth Baron MD History: 74 years Male with . pneumonia FOLLOW UP,COUGH . Comparison: January 20, 2025 FINDINGS: MEDIASTINUM: The cardiac silhouette is not enlarged. LUNGS: No infiltrates, effusions or pneumothorax. Previously seen opacity in the left lower lobe is r esolved. OTHER: No free air under the diaphragm. Degenerative spine. IMPRESSION: No acute cardiopulmonary pathology. Reviewed, dictated and finalized at location A.
--- OUTSIDE RECORDS SUMMARY | 2025-01-26 13:51 | XMS_ITS | Clinical Summary ---
Author Organization [facility] [email or web address] Address [address] [place] [address] Care Team Providers Care Drapery Seamstress Name Role Phone Smooth Baron MD Primary Care Provider [phone] Adile Vizcarra MD Unavailable [phone] Nathalie Mckenzie MD Unavailable [phone] Source Comments [facility],non-owned Affiliates and Associated Physician Practices is amultiple site organization consisting of ambulatory clinics and hospital sitesin [place], [place], [place] and [place]. This disclosure is being madepursuant to the Care Everywhere program and may not contain all information available regarding this patient. Last updated 18.[facility] [email or web address] Allergies No known active allergies Medications * [...] daily 60 capsule 2 Active HYDROcodone-edison taminophen ([place]) 10-325 MG tablet TAKE HALF TO ONE [...] on file Legal Sex Male 1:59 PM INSOLE TAPER Gender Identity Not on file Sexual Orientation [...] this topic Medical Devices Implanted Type Area Bike Designer Device Identifier Shelf Expiration Date Model / Serial / Lot Cmnt Bone Djo Srg Cblt 40gm Hvisc Strl Implanted:Qty: 2 on 04/10/2022 by Adiel Vizcarra MD at [facility] Left: Knee DJ Orthopedics 04/06/2023 600-15-000 / / [id number] Tray Tib 83mm Kn Cocr I Beam Implanted:Qty: 1 on 04/10/2022 by Adiel Vizcarra MD at [facility] Left: Knee S[employer] 02/25/2031 [id number] / / [id number] Cmpnt Fem Kn Lt Cr Cmnt Prm Vngrd Intlk Implanted:Qty: 1 on 04/10/2022 by Adiel Vizcarra MD at [facility] Left: Knee S[employer] 09/08/2027 [id number] / / [id number] Cmpnt Ptlr 28mm 1 Pg Wire Ascnt Arcm Kn Implanted:Qty: 1 on 04/10/2022 by Adiel Vizcarra MD at [facility] Left: Knee S[employer]omet 03/02/2027 [id number] / / [id number] [id number] Vngrd Arcm Kn Ant Stab Implanted:Qty: 1 on 04/10/2022 by Adiel Vizcarra MD at [facility] Left: Knee Santi Biomet 02/06/2027 [id number] / / [id number] Insurance MEDICARE [employer] GENERIC Advance Directives * Full Code (Latest Code Status on File) Date Activated Date Inactivated Comments 04/10/2022 12:47 PM 04/11/2022 2:44 PM Care Teams Drapery Seamstress Relationship Specialty Start Date End Date Smooth Baron MD [address] [place] [address] PCP - General Internal Medicine 12/13/21 [place] [address] [place] [address] Surgeon Orthopedic Surgery 12/13/21 [place] [address] [place] [address] Cardiovascular Disease 03/22/22
== END 2025-01-26 13:06 | disposition home or self-care (01) ==
LOC: CHSIMG 13:15
PROVIDERS: PCP Internal Medicine; Visit Provider Internal Medicine
DX: J18.9 Pneumonia, unspecified organism (principal)
CPT/HCPCS: 71046

== ENCOUNTER 2025-03-27 12:26 | Emergency (ER) | payer MEDICARE, SELFPAY ==
--- NOTE | ~2025-03-27 | CT_ITS ---
CLINICAL INDICATION: Left groin pain COMPARISON: None. TECHNIQUE: Multiple contiguous axial images of the abdomen and pelvis were performed following the ad ministration of with 100 mL Omnipaque-350 intravenous contrast The dose-length product (DLP) was 1115.50 mGy-cm. Automated exposure control and iterative reconstruction technique were employed. FINDINGS/OBSERVATIONS: Visualized lower thorax: Elevation of the left hemidiaphragm with adjacent compressive atelectasis. The remainder of the bilateral lung bases are clear. The heart is of normal size, without pericardial effusion. Small hiatal hernia is present. Liver: The liver demonstrates homogeneous enhancement and is not enlarged. Gallbladder and biliary system: The gallbladder is distended, and otherwise unremarkable. Pancreas: The pancreas enhances homogeneously without ductal dilatation. Spleen: The spleen enhances homogeneously and is not enlarged measuring 8 cm in longitudinal dimension. Kidneys: The bilateral kidneys enhance symmetrically without hydronephrosis or renal calculi. Adrenal glands: Unremarkable. Gastrointestinal tract: Colonic diverticulosis without surrounding inflammatory change. Fecal stasis within the colon. A fat containing left inguinal hernia is identified with a single loop of stool-filled sigmoid colon and surrounding inflammatory change, likely the source of patient's discomfort. No evidence of bowel obstruction is noted (at this time). Appendix: The air-filled appendix is of normal caliber (axial series, images 120 through 137.) Vasculature: Calcified atherosclerotic disease.. Lymph nodes: No pathologically enlarged or morphologically suspicious lymph nodes within the retroperitoneum or at the root of the mesentery. Pelvic structures: The bladder is minimally distended, and otherwise unremarkable. The prostate gland is not enlarged, but contains a large bulky calcification. Body wall and musculoskeletal: Small fat-containing umbilical hernia. A fat containing left inguinal hernia is identified with a single loop of stool-filled sigmoid colon and surrounding inflammatory change, likely the source of patient's discomfort. No evidence of bowel obstruction is noted (at this time). Age-appropriate degenerative disease within the lower chest and lumbosacral spine. IMPRESSION: A fat containing left inguinal hernia is identified with a single loop of stool-filled sigmoid colon and surrounding inflammatory change, likely the source of patient's discomfort. No evidence of bowel obstruction is noted (at this time). Reviewed, dictated and finalized at location A. IMPRESSION: A fat containing left inguinal hernia is identified with a single loop of stool -filled sigmoid colon and surrounding inflammatory change, likely the source of patient's discomfort. No evidence of bowel obstruction is noted (at this time).
--- OUTSIDE RECORDS SUMMARY | 2025-03-27 12:28 | XMS_ITS | Clinical Summary ---
Author Organization [facility] Address [address] [place] [address] Care Team Providers Care Criminal Justice Social Worker Name Role Phone Carolee Corona MD Primary Care Provider [phone] Allergies No known active allergies Medications fenofibrate [...] on file Legal Sex Male 1:26 PM CUSTOM GRINDER Gender Identity Not on file Sexual Orientation Not on file Obstetrics History Last Filed Vital Signs Vital Sign Reading Time Taken Comments Blood Pressure 132/93 09/11/2017 1:31 PM CUSTOM GRINDER Pulse 106 09/11/2017 1:31 PM CUSTOM GRINDER Temperature - - Respiratory Rate - - Oxygen Saturation 96% 09/04/2017 8:20 AM CUSTOM GRINDER Inhaled Oxygen Concentration - - Weight 106.6 kg (234 lb 15.8 oz) 09/03/2017 4:55 PM CUSTOM GRINDER Height 182.9 cm (6') 09/03/2017 4:55 PM CUSTOM GRINDER Body Mass Index 31.87 09/03/2017 4:55 PM CUSTOM GRINDER Plan of Treatment Not on file Insurance MEDICARE MEDICARE Advance Directives For more information, please contact: [phone] Documents on File Type Date Recorded Patient Tieing Machine Operator Expl anation ADVANCE DIRECTIVE 09/13/2017 8:38 AM Care Teams Criminal Justice Social Worker Relationship Specialty Start Date End Date Carolee Corona MD [address] [place] [address] [facility] - General 08/14/17
--- OUTSIDE RECORDS SUMMARY | 2025-03-27 12:28 | XMS_ITS | Clinical Summary ---
Author Organization [facility] [employer] Address [address] [place] [address] Care Team Providers Care Confectionery Maker Name Role Phone Smooth Baron MD Primary Care Provider [phone] Adiel Vizcarra MD Unavailable [phone] Nathalie Mckenzie MD Unavailable [phone] Source Comments [facility],non-owned Affiliates and Associated Physician Practices is amultiple site organization consisting of ambulatory clinics and hospital sitesin [place], [place], [place] and [place]. This disclosure is being madepursuant to the Care Everywhere program and may not contain all information available regarding this patient. Last updated 18.[facility] [employer] Allergies No known active allergies Medications * [...] daily 60 capsule 2 Active HYDROcodone-edison taminophen ([place]) 10-325 MG tablet TAKE HALF TO ONE [...] on file Legal Sex Male 1:59 PM PIGSKIN TRIMMER Gender Identity Not on file Sexual Orientation [...] 7:55 AM CDT Height 177.8 cm (5' 10) 04/10/2022 7:55 AM CDT Body Mass Index [...] this topic Medical Devices Implanted Type Area Clinical Information Systems Director Device Identifier Shelf Expiration Date Model / Serial / Lot Cmnt Bone Djo Srg Cblt 40gm Hvisc Strl Implanted:Qty: 2 on 04/10/2022 by Adiel Vizcarra MD at [facility] Left: Knee DJ Orthopedics 04/06/2023 600-15-000 / / [id number] Tray Tib 83mm Kn Cocr I Beam Implanted:Qty: 1 on 04/10/2022 by Adiel Vizcarra MD at [facility] Left: Knee S[employer] 02/25/2031 [id number] / / [id number] Cmpnt Fem Kn Lt Cr Cmnt Prm Vngrd Intlk Implanted:Qty: 1 on 04/10/2022 by Adiel Vizcarra MD at [facility] Left: Knee [employer] 09/08/2027 [id number] / / [id number] Cmpnt Ptlr 28mm 1 Pg Wire Ascnt Arcm Kn Implanted:Qty: 1 on 04/10/2022 by Adiel Vizcarra MD at [facility] Left: Knee [employer] 03/02/2027 [id number] / / [id number] Vngrd Arcm Kn Ant Stab Implanted:Qty: 1 on 04/10/2022 by Adiel Vizcarra MD at [facility] Left: Knee S[employer] 02/06/2027 [id number] / / [id number] Insurance MEDICARE [employer] [place] GENERIC Advance Directives * Full Code (Latest Code Status on File) Date Activated Date Inactivated Comments 04/10/2022 12:47 PM 04/11/2022 2:44 PM Care Teams Confectionery Maker Relationship Specialty Start Date End Date Smooth Baron MD [address] [place] [address] PCP - General Internal Medicine 12/13/21 [place] [address] [place] [address] Surgeon Orthopedic Surgery 12/13/21 [place] [address] [place] [address] Cardiovascular Disease 03/22/22
--- OUTSIDE RECORDS SUMMARY | 2025-03-27 12:28 | XMS_ITS | Encounter Summary ---
Author Organization [facility] Address [address] [place] [address] Phone Care Team Providers Care Centrifugal Station Operator Name Role Phone Carolee Corona MD Primary Care Provider [phone] Encounter Details Date Type Department Care Team (Late st Contact Info) Description 06/21/2020 Telephone [facility]) - [facility] Urology [address] [place] [address] Medical Office Building [address] [place] [phone] Elissa Duque MA Social History Tobacco Use Types Packs/Day Years Used Date Smoking Tobacco: Every Day Sex and Gender Information Value Date Recorded Sex Assigned at Not on file Legal Sex Male 1:26 PM COFFEE SHOP AIDE Gender Identity Not on file Sexual Orientation Not on file documented as of this encounter Plan of Treatment Not on file documented as of this encounter Visit Diagnoses Not on filedocumented in this encounter Care Teams Centrifugal Station Operator Relationship Specialty Start Date End Date Carolee Corona MD [address] [place] [address] PCP - General 08/14/17 documented as of this encounter
--- OUTSIDE RECORDS SUMMARY | 2025-03-27 12:28 | XMS_ITS | Referral Summary ---
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 Gender Identity Not on file Sexual Orientation Not on file Last Filed Vital Signs Vital Sign Reading Time Taken Comments Blood Pressure 132/93 09/11/2017 1:31 PM INSURANCE ASSISTANT Pulse 106 09/11/2017 1:31 PM INSURANCE ASSISTANT Temperature - - Respiratory Rate - - Oxygen Saturation 96% 09/04/2017 8:20 AM INSURANCE ASSISTANT Inhaled Oxygen Concentration - - Weight 106.6 kg (234 lb 15.8 oz) 09/03/2017 4:55 PM INSURANCE ASSISTANT Height 182.9 cm (6') 09/03/2017 4:55 PM INSURANCE ASSISTANT Body Mass Index 31.87 09/03/2017 4:55 PM INSURANCE ASSISTANT Plan of Treatment Not on file Insurance MEDICARE MEDICARE Advance Directives For more information, please contact: [phone] Documents on File Type Date Recorded Patient Manager Of Pmo Expl anation ADVANCE DIRECTIVE 09/13/2017 8:38 AM Care Teams Reverse Logistics Analyst Relationship Specialty Start Date End Date Carolee Corona MD [address] [place] [address] PCP - General 08/14/17
[2025-03-27 12:29] VITALS: BP 146/95; PULSE 98; RESP 18; TEMP 36.6; O2SAT 97
--- NOTE | 2025-03-27 12:38 | ED_ITS ---
HPI - General Adult General Chief complaint: Urogenital-Male Stated complaint: groin swelling History of Present Illness HPI narrative: Willy is a 74M with a PMH of prostate cancer and hypertension that presented to the ED with left inquinal pain. It has been waxing and waning over the last month. It is worse with coughing and heavy lifting. 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 No CP, dyspnea, diarrhea or vomiting. Last BM yesterday morning. Related Data Allergies Allergy/AdvReac Type Severity Reaction Status Date / Time No Known Allergies Allergy Verified 03/16/22 12:43 Review of Systems 2 Review of Systems: All systems reviewed & are unremarkable except as noted in HPI and below PMFSH Family History Family History Mother Acute myocardial infarction Social History Social History Smoking status: Former smoker Exam 2 Const: General: cooperative, healthy appearing, comfortable, no acute distress, well developed, alert, awake and Physically active O rientation/consciousness: oriented to person, oriented to place and oriented to time HENMT: Head: normal to inspection, normocephalic and atraumatic Ears: h earing grossly normal bilaterally and external ears normal Face/Nose/Sinus: N ormal external nose present Eyes: General: appearance normal, both eyes and all related structures P eriorbital: periorbital findings normal Sclera: sclerae normal Pupils: E qual, round and reactive pupils present Neck: Neck: normal visual inspection Chest: Chest palpation & inspection: normal inspection of the chest Resp: Effort & Inspection: normal respiratory effort, able to speak in complete sentences and no respiratory distress Cardio: Jugular venous distension: no JVD GI: Other: Tender bulge in left inguinal region Skin: General skin exam: normal color and no rashes or lesions noted Neuro: General: oriented to person, oriented to place and oriented to time Cranial nerves: Yes Equal, round and reactive pupils present Extrem: General: normal to inspection Course Course Emergency Course: Ordered labs, CT and morphine. CLINICAL INDICATION: Left groin pain COMPARISON: None. TECHNIQUE: Multiple contiguous axial images of the abdomen and pelvis were performed following the administration of with 100 mL Omnipaque-350 intravenous contrast The dose-length product (DLP) was 1115.50 mGy-cm. Automated exposure control and iterative reconstruction technique were employed. FINDINGS/OBSERVATIONS: Visualized lower thorax: Elevation of the left hemidiaphragm with adjacent compressive atelectasis. The remainder of the bilateral lung bases are clear. The heart is of normal size, without pericardial effusion. Small hiatal hernia is present. Liver: The liver demonstrates homogeneous enhancement and is not enlarged. Gallbladder and biliary system: The gallbladder is distended, and otherwise unremarkable. Pancreas: The pancreas enhances homogeneously without ductal dilatation. Spleen: The spleen enhances homogeneously and is not enlarged measuring 8 cm in longitudinal dimension. Kidneys: The bilateral kidneys enhance symmetrically without hydronephrosis or renal calculi. Adrenal glands: Unremarkable. Gastrointestinal tract: Colonic diverticulosis without surrounding inflammatory change. Fecal stasis within the colon. A fat containing left inguinal hernia is identified with a single loop of stool- filled sigmoid colon and surrounding inflammatory change, likely the source of patient's discomfort. No evidence of bowel obstruction is noted (at this time). Appendix: The air-filled appendix is of normal caliber (axial series, images 120 through 137.) Vasculature: Calcified atherosclerotic disease.. Lymph nodes: No pathologically enlarged or morphologically suspicious lymph nodes within the retroperitoneum or at the root of the mesentery. Pelvic structures: The bladder is minimally distended, and otherwise unremarkable. The prostate gland is not enlarged, but contains a large bulky calcification. Body wall and musculoskeletal: Small fat-containing umbilical hernia. A fat containing left inguinal hernia is identified with a single loop of stool- filled sigmoid colon and surrounding inflammatory change, likely the source of patient's discomfort. No evidence of bowel obstruction is noted (at this time). Age-appropriate degenerative disease within the lower chest and lumbosacral spine. IMPRESSION: A fat containing left inguinal hernia is identified with a single loop of stool- filled sigmoid colon and surrounding inflammatory change, likely the source of patient's discomfort. No evidence of bowel obstruction is noted (at this time). I spoke with Dr. Asif of Surgery at [facility] that recommended transfer to [facility] ED. I spoke with Dr. Zhang of [facility] who accepted transfer. Vital Signs Vital signs: Vital Signs Temperature 97.9 F 03/27/25 12:29 Pulse Rate 98 03/27/25 12:29 Respiratory Rate 18 03/27/25 12:29 Blood Pressure 146/95 H 03/27/25 12:29 Pulse Oximetry 97 03/27/25 12:29 Oxygen Delivery Room Air 03/27/25 12:29 Temperature 98.4 F 03/27/25 15:15 Pulse Rate 88 03/27/25 15:15 Respiratory Rate 20 03/27/25 15:15 Blood Pressure 148/86 H 03/27/25 15:15 Pulse Oximetry 98 03/27/25 15:15 Oxygen Delivery Room Air 03/27/25 15:15 Medical Decision Making Vital Signs Vital Signs: Vital Signs Temperature 97.9 F 03/27/25 12:29 Pulse Rate 98 03/27/25 12:29 Respiratory Rate 18 03/27/25 12:29 Blood Pressure 146/95 H 03/27/25 12:29 Pulse Oximetry 97 03/27/25 12:29 Oxygen Delivery Room Air 03/27/25 12:29 Temperature 98.4 F 03/27/25 15:15 Pulse Rate 88 03/27/25 15:15 Respiratory Rate 20 03/27/25 15:15 Blood Pressure 148/86 H 03/27/25 15:15 Pulse Oximetry 98 03/27/25 15:15 Oxygen Delivery Room Air 03/27/25 15:15 Lab Data 03/27/25 13:05 03/27/25 13:05 Labs: Lab Results 03/27/25 Range/Units 13:05 WBC 6.8 (4.8-10.8) K/mm3 RBC 4.52 L (4.70-6.10) M/mm3 Hgb 14.6 (12.4-15.3) g/dL Hct 42.4 (37.0-46.0) % MCV 93.8 (78.0-102.0) fL MCH 32.3 H (27.0-31.0) pg MCHC 34.4 (32-36) g/dL RDW 12.7 (11.6-14.4) % Plt Count 335 (150-420) K/mm3 MPV 9.0 (8.7-11.0) fl Immature Gran % (Auto) 0.4 H (0.0-0.0) % Neut % (Auto) 62.8 (50.0-70.0) % Lymph % (Auto) 20.1 (18.0-42.0) % Cache % (Auto) 10.2 (2.0-11.0) % Eos % (Auto) 5.8 (1.0-6.0) % Baso % (Auto) 0.7 (0.0-1.0) % Lymph # (Auto) 1.36 (1.10-4.50) K/mm3 Cache # (Auto) 0.69 (0.10-0.90) K/mm3 Eos # (Auto) 0.39 (0.02-0.50) K/mm3 Baso # (Auto) 0.05 (0.00-0.10) K/mm3 Abs Immat Gran (auto) 0.03 H (0.00-0.00) K/mm3 Absolute Neuts (auto) 4.24 (1.70-7.20) K/mm3 Absolute Nucleated RBC 0.00 (0.00-0.00) K/mm3 Nucleated RBC % 0.0 (0-0.0) % Sodium 137 (137-145) mmol/L Potassium 4.0 (3.4-5.0) mmol/L Chloride 110 H (98-107) mmol/L Carbon Dioxide 21 L (22-30) mmol/L Anion Gap 6 (4-12) mmol/L BUN 21 H (9-20) mg/dL Creatinine 1.16 (0.7-1.3) mg/dL Estim Creat Clear Calc 66 ml/min Estimated GFR > 60 (59 - ) Glucose 102 (65-110) mg/dL Calculated Osmolality 287 (285-295) mOsm/kg Calcium 8.6 (8.4-10.2) mg/dL Total Bilirubin 1.0 (0.2-1.3) mg/dL AST 29 (17-59) U/L ALT 31 (6-50) U/L Alkaline Phosphatase 52 (38-126) U/L Total Protein 6.6 (6.3-8.2) g/dL Albumin 4.1 (3.5-5.1) g/dL Discharge Plan Discharge Clinical Impression: Inguinal hernia Patient Disposition: Other Condition: Serious Patient Language: Luxembourgish Prescriptions: No Action loratadine-pseudoephedrine [Claritin-D 24 Hour] 10-240 mg tablet extended release 24 hr 1 tablet PO DAILY Qty: 30 0RF amlodipine 10 mg tablet 10 mg PO DAILY Qty: 30 3RF loratadine-pseudoephedrine [Claritin-D 24 Hour] 10-240 mg tablet extended release 24 hr 1 tablet PO DAILY PRN (Reason: allergy symptoms) Qty: 30 0RF Rx Instructions: #30 fenofibrate 160 mg tablet See Rx Instructions .ROUTE .COMPLEX Qty: 30 0RF Dose Instruction: TAKE ONE TABLET BY MOUTH DAILY Rx Instructions: TAKE ONE TABLET BY MOUTH DAILY PT NEEDS TO BE SEEN IN THE OFFICE Follow-up/Referrals: Smooth Baron MD [Primary Care Provider] -
--- OUTSIDE RECORDS SUMMARY | 2025-03-27 12:57 | XMS_ITS | Referral Summary ---
Author Organization [facility] Address [address] [place] [address] Care Team Providers Care Ostrich Farmer Name Role Phone Carolee Corona MD Primary Care Provider [phone] Allergies No known active allergies Medications fenofibrate [...] on file Legal Sex Male 1:26 PM MINE WEDGE SAWYER Gender Identity Not on file Sexual Orientation Not on file Last Filed Vital Signs Vital Sign Reading Time Taken Comments Blood Pressure 132/93 09/11/2017 1:31 PM MINE WEDGE SAWYER Pulse 106 09/11/2017 1:31 PM MINE WEDGE SAWYER Temperature - - Respiratory Rate - - Oxygen Saturation 96% 09/04/2017 8:20 AM MINE WEDGE SAWYER Inhaled Oxygen Concentration - - Weight 106.6 kg (234 lb 15.8 oz) 09/03/2017 4:55 PM MINE WEDGE SAWYER Height 182.9 cm (6') 09/03/2017 4:55 PM MINE WEDGE SAWYER Body Mass Index 31.87 09/03/2017 4:55 PM MINE WEDGE SAWYER Plan of Treatment Not on file Insurance MEDICARE MEDICARE Advance Directives For more information, please contact: [phone] Documents on File Type Date Recorded Patient General Medical Practitioner Expl anation ADVANCE DIRECTIVE 09/13/2017 8:38 AM Care Teams Ostrich Farmer Relationship Specialty Start Date End Date Carolee Corona MD [address] [place] [address] PCP - General 08/14/17
--- OUTSIDE RECORDS SUMMARY | 2025-03-27 12:57 | XMS_ITS | Clinical Summary ---
Author Organization [facility] Address [address] [place] [address] Care Team Providers Care Cellar Hand Name Role Phone Smooth Baron MD Primary Care Provider [phone] Adiel Vizcarra MD Unavailable [phone] Nathalie Mckenzie MD Unavailable [phone] Source Comments [facility],non-owned Affiliates and Associated Physician Practices is amultiple site organization consisting of ambulatory clinics and hospital sitesin [place], [place] and [place]. This disclosure is being madepursuant to the Care Everywhere program and may not contain all information available regarding this patient. 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 Gender Identity Not on file Sexual Orientation [...] this topic Medical Devices Implanted Type Area Deputy Attorney General Device Identifier Shelf Expiration Date Model / Serial / Lot Cmnt Bone Djo Srg Cblt 40gm Hvisc Strl Implanted:Qty: 2 on 04/10/2022 by Adiel Vizcarra MD at [facility] Left: Knee [employer] 04/06/2023 [id number] / / [id number] Tray Tib 83mm Kn Cocr I Beam Implanted:Qty: 1 on 04/10/2022 by Adiel Vizcarra MD at [facility] Left: Knee [employer] 02/25/2031 [id number] / / [id number] Cmpnt Fem Kn Lt Cr Cmnt Prm Vngrd Intlk Implanted:Qty: 1 on 04/10/2022 by Adiel Vizcarra MD at [facility] Left: Knee [employer] 09/08/2027 [id number] / / [id number] Cmpnt Ptlr 28mm 1 Pg Wire Ascnt Arcm Kn Implanted:Qty: 1 on 04/10/2022 by Adiel Vizcarra MD at [facility] Left: Knee [employer] 03/02/2027 [id number] / / [id number] Vngrd Arcm Kn Ant Stab Implanted:Qty: 1 on 04/10/2022 by Adiel Vizcarra MD at [facility] Left: Knee [employer] 02/06/2027 [id number] / / [id number] Insurance MEDICARE [employer] GENERIC Advance Directives * Full Code (Latest Code Status on File) Date Activated Date Inactivated Comments 04/10/2022 12:47 PM 04/11/2022 2:44 PM Care Teams Cellar Hand Relationship Specialty Start Date End Date Smooth Baron MD [address] [place] [address] PCP - General Internal Medicine 12/13/21 [place] [address] [place] [address] Surgeon Orthopedic Surgery 12/13/21 [place] [address] [place] [address] Cardiovascular Disease 03/22/22
--- OUTSIDE RECORDS SUMMARY | 2025-03-27 12:57 | XMS_ITS | Encounter Summary ---
Author Organization [facility] [place] Address [address] [place] [address] Phone Care Team Providers Care Printed Circuit Boards Router Name Role Phone Carloee Corona MD Primary Care Provider [phone] Encounter Details Date Type Department Care Team (Late st Contact Info) Description 06/21/2020 Telephone [facility]) - [facility] Urology [address] [place] [address] Medical Office Building [address] [place] [phone] Elissa Duque MA Social History Tobacco Use Types Packs/Day Years Used Date Smoking Tobacco: Every Day Sex and Gender Information Value Date Recorded Sex Assigned at Not on file 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
--- OUTSIDE RECORDS SUMMARY | 2025-03-27 12:57 | XMS_ITS | Clinical Summary ---
Author Organization [facility] Address [address] [place] [address] Care Team Providers Care Roving Tester Laboratory Name Role Phone Carolee Corona MD Primary Care Provider [phone] Allergies No known active allergies Medications fenofibrate [...] on file Legal Sex Male 1:26 PM SPECIAL INVESTIGATION UNIT INVESTIGATOR Gender Identity Not on file Sexual Orientation Not on file Obstetrics History Last Filed Vital Signs Vital Sign Reading Time Taken Comments Blood Pressure 132/93 09/11/2017 1:31 PM SPECIAL INVESTIGATION UNIT INVESTIGATOR Pulse 106 09/11/2017 1:31 PM SPECIAL INVESTIGATION UNIT INVESTIGATOR Temperature - - Respiratory Rate - - Oxygen Saturation 96% 09/04/2017 8:20 AM SPECIAL INVESTIGATION UNIT INVESTIGATOR Inhaled Oxygen Concentration - - Weight 106.6 kg (234 lb 15.8 oz) 09/03/2017 4:55 PM SPECIAL INVESTIGATION UNIT INVESTIGATOR Height 182.9 cm (6') 09/03/2017 4:55 PM SPECIAL INVESTIGATION UNIT INVESTIGATOR Body Mass Index 31.87 09/03/2017 4:55 PM SPECIAL INVESTIGATION UNIT INVESTIGATOR Plan of Treatment Not on file Insurance MEDICARE MEDICARE Advance Directives For more information, please contact: [phone] Documents on File Type Date Recorded Patient Lead Technical Writer Expl anation ADVANCE DIRECTIVE 09/13/2017 8:38 AM Care Teams Roving Tester Laboratory Relationship Specialty Start Date End Date Carolee Corona MD [address] [place] [address] [facility] - General 08/14/17
[2025-03-27] MEDS: MORPHINE SULFATE (*CRX) 4 MG/ML INJ IV PUSH (13:00)
[2025-03-27 13:08] LABS: Hematocrit 42.4 % (37.0-46.0); Hemoglobin 14.6 g/dL (12.4-15.3); Immature Granulocyte Percent A 0.4 % (0.0-0.0); Lymphocytes Absolute Auto 1.36 K/mm3 (1.10-4.50); Mean Corpuscular HGB Conc 34.4 g/dL (32-36); Mean Corpuscular Hemoglobin 32.3 pg (27.0-31.0); Mean Corpuscular Volume 93.8 fL (78.0-102.0); Nucleated Red Blood Cells Absolute Auto 0.00 K/mm3 (0.00-0.00); Nucleated Red Blood Cells Perc 0.0 % (0-0.0); Platelet Count Result 335 K/mm3 (150-420); Red Blood Count 4.52 M/mm3 (4.70-6.10); White Blood Count 6.8 K/mm3 (4.8-10.8)
[2025-03-27 13:19] LABS: Alanine Aminotransferase 31 U/L (6-50); Albumin Level 4.1 g/dL (3.5-5.1); Alkaline Phosphatase 52 U/L (38-126); Anion Gap 6 mmol/L (4-12); Aspartate Amino Transferase 29 U/L (17-59); Bilirubin,Total 1.0 mg/dL (0.2-1.3); Blood Urea Nitrogen 21 mg/dL (9-20); Calcium 8.6 mg/dL (8.4-10.2); Carbon Dioxide 21 mmol/L (22-30); Chloride 110 mmol/L (98-107); Estimated CRCL calculation 66 ml/min; Estimated Glomerular Filt Rate > 60; Glucose 102 mg/dL (65-110); Osmolality Calculated 287 mOsm/kg (285-295); Sodium 137 mmol/L (137-145); Total Protein 6.6 g/dL (6.3-8.2)
[2025-03-27 13:22] LABS: Potassium 4.0 mmol/L (3.4-5.0)
[2025-03-27 14:20] VITALS: BP 132/87; PULSE 85; RESP 20; O2SAT 94
[2025-03-27 14:54] VITALS: BP 128/88; PULSE 82; RESP 20; O2SAT 98
[2025-03-27 15:15] VITALS: BP 148/86; PULSE 88; RESP 20; TEMP 36.9; O2SAT 98
== END 2025-03-27 15:49 | disposition other institution (70) ==
LOC: CHSED 12:55
PROVIDERS: Emergency Provider Family Medicine; PCP Internal Medicine
DX: K40.90 Unilateral inguinal hernia, without obstruction or gangrene, not specified as recurrent (principal); Z87.891 Personal history of nicotine dependence
CPT/HCPCS: 36415; 74177; 80053; 85025; 99284; J2270; Q9967

== ENCOUNTER 2025-03-27 16:30 | Emergency (ER) | payer MEDICARE, SELFPAY ==
[2025-03-27 16:25] VITALS: BP 160/98; PULSE 96; RESP 18; TEMP 36.4; O2SAT 100
--- NOTE | 2025-03-27 16:36 | PC.NURSE ---
Dr. Asif notified of pt arrival and that he is in room 6.
--- NOTE | 2025-03-27 16:40 | ED.GENADULT ---
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 DA SILVA OUR SURGEON ON-CALL. PATIENT DENIES ANY FEVER, CHILLS, NAUSEA, VOMITING, DIARRHEA, CONSTIPATION. Related Data Allergies Allergy/AdvReac Type Severity Reaction Status Date / Time No Known Allergies Allergy Verified 03/16/22 12:43 Review of Systems Review of Systems: All systems reviewed & are unremarkable except as noted in HPI and below PMFSH Family History Family History Mother Acute myocardial infarction Social History Social History Smoking status: Former smoker Exam Narrative: GENERAL APPEARANCE: WELL-DEVELOPED, WELL-NOURISHED SKIN: NORMAL COLOR HEAD: NORMOCEPHALIC, NONTRAUMATIC EYES: CLEAR CONJUNCTIVA ENT: OROPHARYNX NORMAL, EARS NORMAL, NOSE NORMAL NECK: SUPPLE, NONTENDER CHEST AND RESPIRATORY: AIRWAY PATENT, NO RESPIRATORY DISTRESS, NO ACCESSORY MUSCLE USE HEART: REGULAR RATE/RHYTHM ABDOMEN: SOFT, BULGING, TENDER, LEFT INGUINAL HERNIA , NO ORGANOMEGALY, QUIET BOWEL SOUNDS VASCULAR: NORMAL PERIPHERAL PULSES, NORMAL CAPILLARY REFILL. MUSCULOSKELETAL: NORMAL RANGE OF MOTION, NONTENDER BACK NEUROLOGIC: ALERT AND ORIENTED ?3, CRIB CLERK IS NORMAL TESTED, NO GROSS MOTOR DEFICIT Course Vital Signs Vital signs: Vital Signs Temperature 36.4 C 03/27/25 16:25 Pulse Rate 96 03/27/25 16:25 Respiratory Rate 18 03/27/25 16:25 Blood Pressure 160/98 H 03/27/25 16:25 Pulse Oximetry 100 03/27/25 16:25 Oxygen Delivery Room Air 03/27/25 16:25 Temperature 36.4 C 03/27/25 16:25 Pulse Rate 96 03/27/25 16:25 Respiratory Rate 18 03/27/25 16:25 Blood Pressure 160/98 H 03/27/25 16:25 Pulse Oximetry 100 03/27/25 16:25 Oxygen Delivery Room Air 03/27/25 16:25 Procedures Other Procedure Procedure 1: Other Procedure: LEFT INGUINAL HERNIA REDUCTION, NO PAIN MEDICATIONS, NO SEDATION, CONSTANT GENTLE PRESSURE 1 WAS ENOUGH TO REDUCE HERNIA, PATIENT FEELS MUCH BETTER Medical Decision Making MDM Narrative Medical decision making narrative: PATIENT CAME WITH LEFT INGUINAL HERNIA, I WAS ABLE TO REDUCE IT IN THE ED WITHOUT ANY PAIN MEDICATION OR SEDATION. Dr. da silva came to the emergency room and requested to discharge patient home and his office going to call the patient for appointment. Differential Diagnosis Differential Diagnosis: LEFT INGUINAL HERNIA Medical Records Medical records narrative: REDUCIBLE LEFT INGUINAL HERNIA Vital Signs Vital Signs: Vital Signs Temperature 36.4 C 03/27/25 16:25 Pulse Rate 96 03/27/25 16:25 Respiratory Rate 18 03/27/25 16:25 Blood Pressure 160/98 H 03/27/25 16:25 Pulse Oximetry 100 03/27/25 16:25 Oxygen Delivery Room Air 03/27/25 16:25 Temperature 36.4 C 03/27/25 16:25 Pulse Rate 96 03/27/25 16:25 Respiratory Rate 18 03/27/25 16:25 Blood Pressure 160/98 H 03/27/25 16:25 Pulse Oximetry 100 03/27/25 16:25 Oxygen Delivery Room Air 03/27/25 16:25 Discharge Plan Discharge Clinical Impression: Inguinal hernia Patient Disposition: Home Condition: Improved Additional Instructions: Pt will be contacted by Dr. Da Silva's office on Sunday03/30/25 to arrange for outpatient open left inguinal hernia repair with mesh and open umbilical hernia repair, possible mesh at [facility] next week. Patient Language: Turkmen Prescriptions: No Action loratadine-pseudoephedrine [Claritin-D 24 Hour] 10-240 mg tablet extended release 24 hr 1 tablet PO DAILY Qty: 30 0RF amlodipine 10 mg tablet 10 mg PO DAILY Qty: 30 3RF loratadine-pseudoephedrine [Claritin-D 24 Hour] 10-240 mg tablet extended release 24 hr 1 tablet PO DAILY PRN (Reason: allergy symptoms) Qty: 30 0RF Rx Instructions: #30 fenofibrate 160 mg tablet See Rx Instructions .ROUTE .COMPLEX Qty: 30 0RF Dose Instruction: TAKE ONE TABLET BY MOUTH DAILY Rx Instructions: TAKE ONE TABLET BY MOUTH DAILY PT NEEDS TO BE SEEN IN THE OFFICE Follow-up/Referrals: Smooth Baron MD [Primary Care Provider] - Danish Da Silva MD [Physician] -
--- NOTE | 2025-03-27 17:42 | WPDCN ---
Assessment and Plan Assessment and plan (1) Incarcerated left inguinal hernia: Code(s): K40.30 - Unilateral inguinal hernia, with obstruction, without gangrene, not specified as recurrent Status: Acute Assessment and Plan: Hernia was able to be reduced in the ER at [facility] by ER MD. Will discharge pt from ED and he has been instructed not to lift anything over 5-10 pounds and to take a laxative if he feels constipated. If he has a recurrent very painful left groin bulge the he cannot manually reduce with lying down, then he was instructed to return to the [facility] ER. I will have my office contact him on Sunday next week to arrange for an elective repair of the LIH with mesh and repair of the periumbilical incisional hernia with possible mesh as an outpatient. (2) Incisional hernia: Code(s): K43.2 - Incisional hernia without obstruction or gangrene Status: Acute Assessment and Plan: Small incisional hernia is reducible. Will proceed with open incisional hernia repair with possible mesh at same time as LIH repair with mesh. HPI Data of Consult Date/Time: 03/27/25 17:42 Primary Care Provider: Smooth Baron MD Consult Narrative Reason for consult: Incarcerated left inguinal hernia Narrative: Willy Gaytan is a 74 year old male who presented to [facility] ER this morning with a several hour history of acute left groin pain associated with a bulge. Pt states he has had some pain there with lifting but never noticed a bulge and did not know he had a hernia. He lifted two 5 gallon cans of gas yesterday. He had a bad cough about a month ago and felt a sharp pain at that time but did not notice a bulge. 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 CT abd/pelvis showed a portion of the sigmoid colon within the left inguinal canal extending to the upper part of the left scrotum. No colonic obstruction seen. Pt has had a robotic prostatectomy for early stage prostate CA at [facility] about 8 years ago. He has also had a left knee replacement within the last few years. He was transferred from [facility] to [facility] and before my arrival, Dr. Cowart, the ER MD here manually reduced the incarcerated LIH with relative ease. When I arrived, the pt was pain free and the LIH was reduced. Review of Systems Review of Systems: The remainder of the review of systems to include constitutional, HEENT, cardiovascular, respiratory, GI, , integumentary, musculoskeletal, endocrine, immunologic, hematologic, psychiatric, and neurologic are all negative except for which is mentioned above in the HPI. [facility] Family History Family History Mother Acute myocardial infarction Social History Social History Smoking status: Former smoker Meds Home Medications and Allergies Home Medications ?Medication ?Instructions ?Recorded ?Confirmed ?Type loratadine-pseudoephedrine ER 10 1 tablet PO DAILY #30 tabs 08/20/19 Rx mg-240 mg tablet,extended [id number] (Claritin-D 24 Hour) amlodipine 10 mg tablet 10 mg PO DAILY #30 tabs 01/19/20 Rx loratadine-pseudoephedrine ER 10 1 tablet PO DAILY PRN allergy 02/24/20 Rx mg-240 mg tablet,extended symptoms #30 tabs [id number] (Claritin-D 24 Hour) fenofibrate 160 mg tablet See Rx Instructions .Route 05/05/20 Rx .COMPLEX #30 tabs Allergies Allergy/AdvReac Type Severity Reaction Status Date / Time No Known Allergies Allergy Verified 03/16/22 12:43 Vital Signs Vital Signs - 24 hr 03/27/25 16:25 Temperature 36.4 C Pulse Rate 96 Respiratory Rate 18 Blood Pressure 160/98 H Pulse Oximetry 100 Oxygen Delivery Room Air Exam Const: General: comfortable and no acute distress HENMT: Ears: TM's normal bilaterally Face/Nose/Sinus: Normal nares present Mouth: Yes moist mucous membranes Eyes: General: appearance normal, both eyes and all related structures Sclera: sclerae normal Pupils: Equal, round and reactive pupils present EOM: EOMs intact bilaterally Neck: Neck: supple and no JVD Resp: Effort & Inspection: normal respiratory effort Auscultation: clear to auscultation bilaterally Cardio: Rate: regular rate Rhythm: regular rhythm GI: Other: Abd obese, soft, 2 cm reducible periumbilical incisional hernia from extraction site from robotic prostatectomy. Large LIH that is presently reduced, min tenderness with palpation. No RIH. : Other: Bilaterally descended testes, no masses. Skin: General skin exam: normal color and no rashes or lesions noted Neuro: General: gait normal Speech: normal speech Motor exam (neuro): 5/5 motor strength present throughout Sensory Exam: normal sensation Extrem: General: normal to inspection Psych: Mental Status: mental status grossly normal Affect: normal affect Results Imaging Radiologist's impression: CT Scan Report Signed Patient: Willy Gaytan : 1950 MR#: [id number] Age: 74 Acct:[id number] Loc: [facility] ADM Date: 03/27/25Attending Dr: Ordering Physician: Yaya Max DO Date of Service: 03/27/25 Procedure(s): CT abdomen pelvis w con Accession Number(s): [id number] cc: Yaya Max DO; Smooth Baron MD~ CLINICAL INDICATION: Left groin pain COMPARISON: None. TECHNIQUE: Multiple contiguous axial images of the abdomen and pelvis were performed following the administration of with 100 mL Omnipaque-350 intravenous contrast The dose-length product (DLP) was 1115.50 mGy-cm. Automated exposure control and iterative reconstruction technique were employed. FINDINGS/OBSERVATIONS: Visualized lower thorax: Elevation of the left hemidiaphragm with adjacent compressive atelectasis. The remainder of the bilateral lung bases are clear. The heart is of normal size, without pericardial effusion. Small hiatal hernia is present. Liver: The liver demonstrates homogeneous enhancement and is not enlarged. Gallbladder and biliary system: The gallbladder is distended, and otherwise unremarkable. Pancreas: The pancreas enhances homogeneously without ductal dilatation. Spleen: The spleen enhances homogeneously and is not enlarged measuring 8 cm in longitudinal dimension. Kidneys: The bilateral kidneys enhance symmetrically without hydronephrosis or renal calculi. Adrenal glands: Unremarkable. Gastrointestinal tract: Colonic diverticulosis without surrounding inflammatory change. Fecal stasis within the colon. A fat containing left inguinal hernia is identified with a single loop of stool-filled sigmoid colon and surrounding inflammatory change, likely the source of patient's discomfort. No evidence of bowel obstruction is noted (at this time). Appendix: The air-filled appendix is of normal caliber (axial series, images 120 through 137.) Vasculature: Calcified atherosclerotic disease.. Lymph nodes: No pathologically enlarged or morphologically suspicious lymph nodes within the retroperitoneum or at the root of the mesentery. Pelvic structures: The bladder is minimally distended, and otherwise unremarkable. The prostate gland is not enlarged, but contains a large bulky calcification. Body wall and musculoskeletal: Small fat-containing umbilical hernia. A fat containing left inguinal hernia is identified with a single loop of stool-filled sigmoid colon and surrounding inflammatory change, likely the source of patient's discomfort. No evidence of bowel obstruction is noted (at this time). Age-appropriate degenerative disease within the lower chest and lumbosacral spine. IMPRESSION: A fat containing left inguinal hernia is identified with a single loop of stool-filled sigmoid colon and surrounding inflammatory change, likely the source of patient's discomfort. No evidence of bowel obstruction is noted (at this time). Reviewed, dictated and finalized at location A. Please be advised this is a medical document. It is intended for qrpa-ov-ypna communication. It is written in medical language and may contain unfamiliar abbreviations or verbiage. Medical documents are intended to carry relevant information, facts as evident, and the clinical opinion of the practitioner at the time of the encounter. This report may have been done utilizing a voice recognition system. Attempts have been made to correct errors. However, there may be uncorrected grammatical, spelling, and recognition errors present. The file time of this note does not necessarily represent the time of service. Dictated By: Lili Barnes MD 03/27/25 1431 Signed By: <Electronically signed by Lili Barnes MD in OV> 03/27/25 1430
--- OUTSIDE RECORDS SUMMARY | 2025-03-27 17:58 | XMS_ITS | Referral Summary ---
Author Organization [facility] Address [address] [place] [address] Care Team Providers Care Test Center Manager Name Role Phone Carolee Corona MD Primary Care Provider [phone] Allergies No known active allergies Medications fenofibrate [...] on file Legal Sex Male 1:26 PM FLATCAR WHACKER Gender Identity Not on file Sexual Orientation Not on file Last Filed Vital Signs Vital Sign Reading Time Taken Comments Blood Pressure 132/93 09/11/2017 1:31 PM FLATCAR WHACKER Pulse 106 09/11/2017 1:31 PM FLATCAR WHACKER Temperature - - Respiratory Rate - - Oxygen Saturation 96% 09/04/2017 8:20 AM FLATCAR WHACKER Inhaled Oxygen Concentration - - Weight 106.6 kg (234 lb 15.8 oz) 09/03/2017 4:55 PM FLATCAR WHACKER Height 182.9 cm (6') 09/03/2017 4:55 PM FLATCAR WHACKER Body Mass Index 31.87 09/03/2017 4:55 PM FLATCAR WHACKER Plan of Treatment Not on file Insurance MEDICARE MEDICARE Advance Directives For more information, please contact: [phone] Documents on File Type Date Recorded Patient Health And Safety Representative Expl anation ADVANCE DIRECTIVE 09/13/2017 8:38 AM Care Teams Test Center Manager Relationship Specialty Start Date End Date Carolee Corona MD [address] [place] [address] PCP - General 08/14/17
--- OUTSIDE RECORDS SUMMARY | 2025-03-27 17:58 | XMS_ITS | Encounter Summary ---
Author Organization [facility] Address [address] [place] [address] Phone Care Team Providers Care Block And Case Maker Name Role Phone Carolee Corona MD Primary Care Provider Encounter Details Date Type Department Care Team (Late st Contact Info) Description 06/21/2020 Telephone [facility]) - [facility] [address] [place] [address] Medical Office Building [address] [place] [phone] Elissa Duque MA Social History Tobacco Use Types Packs/Day Years Used Date Smoking Tobacco: Every Day Sex and Gender Information Value Date Recorded Sex Assigned at Not on file Legal Sex Male 1:26 PM CHIEF DATA OFFICER Gender Identity Not on file Sexual Orientation Not on file documented as of this encounter Plan of Treatment Not on file documented as of this encounter Visit Diagnoses Not on filedocumented in this encounter Care Teams Block And Case Maker Relationship Specialty Start Date End Date Carolee Corona MD [address] [place] [address] PCP - General 08/14/17 documented as of this encounter
--- OUTSIDE RECORDS SUMMARY | 2025-03-27 17:58 | XMS_ITS | Clinical Summary ---
Author Organization [facility] Address [address] [place] [address] Care Team Providers Care House Steward/Stewardess Name Role Phone Smooth Baron MD Primary Care Provider [phone] Adiel Vizcarra MD Unavailable [phone] Nathalie Mckenzie MD Unavailable [phone] Source Comments [facility],non-owned Affiliates and Associated Physician Practices is amultiple site organization consisting of ambulatory clinics and hospital sitesin [place], [place], [place] and [place]. This disclosure is being madepursuant to the Care Everywhere program and may not contain all information available regarding this patient. Last updated 18.[facility] Allergies No known active allergies Medications * [...] daily 60 capsule 2 Active HYDROcodone-edison taminophen ([place]) 10-325 MG tablet TAKE HALF TO ONE [...] on file Legal Sex Male 1:59 PM NEUROPHYSIOLOGY TECH Gender Identity Not on file Sexual Orientation [...] this topic Medical Devices Implanted Type Area Outbound Sales Executive Device Identifier Shelf Expiration Date Model / Serial / Lot Cmnt Bone Djo Srg Cblt 40gm Hvisc Strl Implanted:Qty: 2 on 04/10/2022 by Adiel Vizcarra MD at [facility] Left: Knee [employer] 04/06/2023 [id number] / / [id number] Tray Tib 83mm Kn Cocr I Beam Implanted:Qty: 1 on 04/10/2022 by Adiel Vizcarra MD at [facility] Left: Knee [employer] 02/25/2031 [id number] / / [id number] Cmpnt Fem Kn Lt Cr Cmnt Prm Vngrd Intlk Implanted:Qty: 1 on 04/10/2022 by Adiel Vizcarra MD at [facility] Left: Knee [employer] 09/08/2027 [id number] / / [id number] Cmpnt Ptlr 28mm 1 Pg Wire Ascnt Arcm Kn Implanted:Qty: 1 on 04/10/2022 by Adiel Vizcarra MD at [facility] Left: Knee [employer] 03/02/2027 [id number] / / [id number] Brng [id number] Vngrd Arcm Kn Ant Stab Implanted:Qty: 1 on 04/10/2022 by Adiel Vizcarra MD at [facility] Left: Knee [employer] 02/06/2027 [id number] / / [id number] Insurance MEDICARE [employer] GENERIC Advance Directives * Full Code (Latest Code Status on File) Date Activated Date Inactivated Comments 04/10/2022 12:47 PM 04/11/2022 2:44 PM Care Teams House Steward/Stewardess Relationship Specialty Start Date End Date Smooth Baron MD [address] [place] [address] PCP - General Internal Medicine 12/13/21 [place] [id number] [place] [address] Surgeon Orthopedic Surgery 12/13/21 [place] [address] [place] [address] Cardiovascular Disease 03/22/22
--- OUTSIDE RECORDS SUMMARY | 2025-03-27 17:58 | XMS_ITS | Clinical Summary ---
Author Organization [facility] Address [address] [place] [address] Care Team Providers Care Skin Drier Name Role Phone Carolee Corona MD Primary Care Provider [phone] Allergies No known active allergies Medications fenofibrate [...] on file Legal Sex Male 1:26 PM RECYCLER Gender Identity Not on file Sexual Orientation Not on file Obstetrics History Last Filed Vital Signs Vital Sign Reading Time Taken Comments Blood Pressure 132/93 09/11/2017 1:31 PM RECYCLER Pulse 106 09/11/2017 1:31 PM RECYCLER Temperature - - Respiratory Rate - - Oxygen Saturation 96% 09/04/2017 8:20 AM RECYCLER Inhaled Oxygen Concentration - - Weight 106.6 kg (234 lb 15.8 oz) 09/03/2017 4:55 PM RECYCLER Height 182.9 cm (6') 09/03/2017 4:55 PM RECYCLER Body Mass Index 31.87 09/03/2017 4:55 PM RECYCLER Plan of Treatment Not on file Insurance MEDICARE MEDICARE Advance Directives For more information, please contact: [phone] Documents on File Type Date Recorded Patient Harness Brusher Expl anation ADVANCE DIRECTIVE 09/13/2017 8:38 AM Care Teams Skin Drier Relationship Specialty Start Date End Date Carolee Corona MD [address] [place] [address] [facility] - General 08/14/17
== END 2025-03-27 18:08 | disposition home or self-care (01) ==
LOC: ANHED 17:57
PROVIDERS: Emergency Provider Emergency Medicine; PCP Internal Medicine
DX: K40.90 Unilateral inguinal hernia, without obstruction or gangrene, not specified as recurrent (principal)
CPT/HCPCS: 99282

== ENCOUNTER 2025-04-01 15:26 | Outpatient (CLI) | payer MEDICARE, SELFPAY ==
--- OUTSIDE RECORDS SUMMARY | 2025-04-01 15:32 | XMS_ITS | Referral Summary ---
Author Organization [facility] Address [address] [place] [address] Care Team Providers Care Robotics Systems Engineer Name Role Phone Carolee Corona MD Primary Care Provider [phone] Allergies No known active allergies Medications fenofibrate [...] on file Legal Sex Male 1:26 PM BRUSH FINISHER Gender Identity Not on file Sexual Orientation Not on file Last Filed Vital Signs Vital Sign Reading Time Taken Comments Blood Pressure 132/93 09/11/2017 1:31 PM BRUSH FINISHER Pulse 106 09/11/2017 1:31 PM BRUSH FINISHER Temperature - - Respiratory Rate - - Oxygen Saturation 96% 09/04/2017 8:20 AM BRUSH FINISHER Inhaled Oxygen Concentration - - Weight 106.6 kg (234 lb 15.8 oz) 09/03/2017 4:55 PM BRUSH FINISHER Height 182.9 cm (6') 09/03/2017 4:55 PM BRUSH FINISHER Body Mass Index 31.87 09/03/2017 4:55 PM BRUSH FINISHER Plan of Treatment Not on file Insurance MEDICARE MEDICARE Advance Directives For more information, please contact: [phone] Documents on File Type Date Recorded Patient Heading Matcher And Assembler Expl anation ADVANCE DIRECTIVE 09/13/2017 8:38 AM Care Teams Robotics Systems Engineer Relationship Specialty Start Date End Date Carolee Corona MD [address] [place] [address] PCP - General 08/14/17
--- OUTSIDE RECORDS SUMMARY | 2025-04-01 15:32 | XMS_ITS | Clinical Summary ---
Author Organization [facility] Address [address] [place] [address] Care Team Providers Care Python Django Developer Name Role Phone Smooth Baron MD Primary Care Provider [phone] Adiel Vizcarra MD Unavailable [phone] Nathalie Mckenzie MD Unavailable [phone] Source Comments [facility],non-owned Affiliates and Associated Physician Practices is amultiple site organization consisting of ambulatory clinics and hospital sitesin [place], [place], [place] and [place]. This disclosure is being madepursuant to the Care Everywhere program and may not contain all information available regarding this patient. Last updated 18.[facility] Allergies No known active allergies Medications * [...] daily 60 capsule 2 Active HYDROcodone-edison taminophen ([place]) 10-325 MG tablet TAKE HALF TO ONE [...] on file Legal Sex Male 1:59 PM LEGAL WORD PROCESSOR Gender Identity Not on file Sexual Orientation [...] 12/24/2020, 11/26/2020 DEPRESSION SCREENING 09/24/2024 INFLUENZA VACCINE (#1) 2025 06/21/2020 Respiratory Syncytial Virus (RSV) Vaccine [...] this topic Medical Devices Implanted Type Area Supervisor Gear Repair Device Identifier Shelf Expiration Date Model / Serial / Lot Cmnt Bone Djo Srg Cblt 40gm Hvisc Strl Implanted:Qty: 2 on 04/10/2022 by Adiel Vizcarra MD at [facility] Left: Knee [employer] 04/06/2023 600-15-000 / / [id number] Tray Tib 83mm Kn Cocr I Beam Implanted:Qty: 1 on 04/10/2022 by Adiel Vizcarra MD at [facility] Left: Knee [employer] 02/25/2031 [id number] / / [id number] Cmpnt Fem Kn Lt Cr Cmnt Prm Vngrd Intlk Implanted:Qty: 1 on 04/10/2022 by Adiel Vizcarra MD at [facility] Left: Knee [employer] 09/08/2027 [id number] / / [id number] Cmpnt Ptlr 28mm 1 Pg Wire Ascnt Arcm Kn Implanted:Qty: 1 on 04/10/2022 by Adiel Vizcarra MD at [facility] Left: Knee [employer] 03/02/2027 [id number] / / [id number] Brng [id number] Vngrd Arcm Kn Ant Stab Implanted:Qty: 1 on 04/10/2022 by Adiel Vizcarra MD at [facility] Left: Knee [employer] 02/06/2027 [id number] / / [id number] Insurance MEDICARE [employer] GENERIC Advance Directives * Full Code (Latest Code Status on File) Date Activated Date Inactivated Comments 04/10/2022 12:47 PM 04/11/2022 2:44 PM Care Teams Python Django Developer Relationship Specialty Start Date End Date Smooth Baron MD [address] [place] [address] PCP - General Internal Medicine 12/13/21 [place] [address] [place] [address] Surgeon Orthopedic Surgery 12/13/21 [place] [address] [place] [address] Cardiovascular Disease 03/22/22
--- OUTSIDE RECORDS SUMMARY | 2025-04-01 15:32 | XMS_ITS | Clinical Summary ---
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 Gender Identity Not on file Sexual Orientation Not on file Obstetrics History Last Filed Vital Signs Vital Sign Reading Time Taken Comments Blood Pressure 132/93 09/11/2017 1:31 PM PLASTIC SHEETS SUPERVISOR Pulse 106 09/11/2017 1:31 PM PLASTIC SHEETS SUPERVISOR Temperature - - Respiratory Rate - - Oxygen Saturation 96% 09/04/2017 8:20 AM PLASTIC SHEETS SUPERVISOR Inhaled Oxygen Concentration - - Weight 106.6 kg (234 lb 15.8 oz) 09/03/2017 4:55 PM PLASTIC SHEETS SUPERVISOR Height 182.9 cm (6') 09/03/2017 4:55 PM PLASTIC SHEETS SUPERVISOR Body Mass Index 31.87 09/03/2017 4:55 PM PLASTIC SHEETS SUPERVISOR Plan of Treatment Not on file Insurance MEDICARE MEDICARE Advance Directives For more information, please contact: [phone] Documents on File Type Date Recorded Patient Personal Injury Specialist Expl anation ADVANCE DIRECTIVE 09/13/2017 8:38 AM Care Teams Strategy Planning Consultant Relationship Specialty Start Date End Date Carolee Corona MD [address] [place] [address] [facility] - General 08/14/17
--- OUTSIDE RECORDS SUMMARY | 2025-04-01 15:32 | XMS_ITS | Encounter Summary ---
Author Organization [facility] Address [address] [place] [address] Phone Care Team Providers Care Channel Layer Name Role Phone Carolee Corona MD Primary Care Provider [phone] Encounter Details Date Type Department Care Team (Late st Contact Info) Description 06/21/2020 Telephone [facility]) - [facility] Urology [address] [place] [address] Medical Office Building [address] [place] [phone] Elissa Duque MA Social History Tobacco Use Types Packs/Day Years Used Date Smoking Tobacco: Every Day Sex and Gender Information Value Date Recorded Sex Assigned at Not on file Legal Sex Male 1:26 PM STITCHER HAND Gender Identity Not on file Sexual Orientation Not on file documented as of this encounter Plan of Treatment Not on file documented as of this encounter Visit Diagnoses Not on filedocumented in this encounter Care Teams Channel Layer Relationship Specialty Start Date End Date Carolee oCrona MD [address] [place] [address] PCP - General 08/14/17 documented as of this encounter
--- NOTE | 2025-04-01 15:49 | ECG_ITS ---
Test Date: 2025-04-01 15:41:52 Measurements Intervals Thomas Rate: 90 P: 51 HI: 196 QRS: -76 QRSD: 165 T: 20 QT: 399 QTc: 489 Interpretive Statements SINUS RHYTHM LEFT AXIS DEVIATION [QRS AXIS < -30] RIGHT BUNDLE BRANCH BLOCK [120+ ms QRS DURATION, UPRIGHT V1, 40+ ms S IN I/aVL/V4/V5/V6] MODERATE VOLTAGE CRITERIA FOR LVH, CONSIDER NORMAL VARIANT [MEETS CRITERIA IN ONE OF: R(aVL), S(V1), R(V5), R(V5/V6)+S(V1)] No previous ECG available for comparison Electronically Signed On 04-02-2025 11:39:13 CDT by Kirit Be M.D.
== END 2025-04-01 15:27 | disposition home or self-care (01) ==
LOC: CHSCARD 15:30
PROVIDERS: PCP Internal Medicine; Visit Provider Anesthesiology
DX: I10 Essential (primary) hypertension (principal); I45.10 Unspecified right bundle-branch block
CPT/HCPCS: 93005

== ENCOUNTER 2025-04-03 00:27 | Day surgery (SDC) | payer MEDICARE, SELFPAY ==
--- NOTE | 2025-04-01 08:52 | PC.NURSE ---
Report to the Outpatient Waiting Room, entrance under the green pavilion located off [facility], at time _12:30 pm on date __04/03/25 . Planned Procedure Time: __2:30 pm .? Time changes happen often and if your time is changed the preop area will call you the afternoon before. - You and your visitor will be asked to self-screen and do not enter if you have any COVID symptoms. Please call surgeon if you need to reschedule. - A mask is optional within the hospital at this time. Patients may have clear liquids (water, carbonated beverages, clear teas, apple juice) until 3 hours prior to surgery (11:30 AM) with a maximum of 20 ounces. - No food from midnight until time of surgery and no smoking, or chewing tobacco (or any form of nicotine). No chewing gum, candy or mints. Take only the following medications with a SIP of water on the morning of surgery: ____AMLODIPINE DO NOT STOP ANY OF YOUR OTHER PRESCRIPTION MEDICATIONS PRIOR TO SURGERY EXCEPT THE FOLLOWING Hold all vitamins and supplements for 3 days per anesthesiologist. Medications to discontinue per physician ___CELECOXIB PER DR DA SILVA Please no make-up, nail setswana, hairspray, perfume, deodorant, or body powder the day of surgery.? No jewelry (including any body piercings) or valuables the day of surgery, leave them at home.? Please take a shower or bath the night before, or the morning of, surgery with an antibacterial soap.? Wear comfortable, loose fitting clothing.? Children are encouraged to wear pajamas. - Jewelry must be removed prior to entering the operating room.? Rings and piercings that are not removed may be cut off. - The hospital will not accept responsibility for valuables.? - Please leave all valuables, including medications, at home the day of surgery. If you are going home after surgery, a licensed [employer] driver must drive you home.? - NO public transportation without another adult if you receive anesthesia. - We recommend that an adult stay with you for 24 hours following discharge. - We also recommend that you do not drive, make important decision, drink alcoholic beverages, or take any drugs that were not prescribed by your health care provider for at least 24 hours after your discharge time. For Pediatric surgeries, we recommend two adults accompany the child home. Follow any additional instructions given to you from your surgeon. Telephone instructions given to __PATIENT and asked if any additional questions and then verbalized understanding. Patient advised to call surgeon office or pre surgery nurse liaison [phone] if any additional questions.
[2025-04-01 09:06] VITALS: BMI 35.4
[2025-04-03] VITALS (8 sets, daily range): BP systolic 138–156; BP diastolic 78–90; PULSE 90–113; RESP 11–20; TEMP 37.3; O2SAT 93–99
--- OUTSIDE RECORDS SUMMARY | 2025-04-03 00:30 | XMS_ITS | Referral Summary ---
Author Organization [facility] Address [address] [place] [address] Care Team Providers Care Credit Risk Associate Name Role Phone Carolee Corona MD Primary Care Provider [phone] Allergies No known active allergies Medications fenofibrate [...] on file Legal Sex Male 1:26 PM INKJET OPERATOR Gender Identity Not on file Sexual Orientation Not on file Last Filed Vital Signs Vital Sign Reading Time Taken Comments Blood Pressure 132/93 09/11/2017 1:31 PM INKJET OPERATOR Pulse 106 09/11/2017 1:31 PM INKJET OPERATOR Temperature - - Respiratory Rate - - Oxygen Saturation 96% 09/04/2017 8:20 AM INKJET OPERATOR Inhaled Oxygen Concentration - - Weight 106.6 kg (234 lb 15.8 oz) 09/03/2017 4:55 PM INKJET OPERATOR Height 182.9 cm (6') 09/03/2017 4:55 PM INKJET OPERATOR Body Mass Index 31.87 09/03/2017 4:55 PM INKJET OPERATOR Plan of Treatment Not on file Insurance MEDICARE MEDICARE Advance Directives For more information, please contact: [phone] Documents on File Type Date Recorded Patient Video Control Engineer Expl anation ADVANCE DIRECTIVE 09/13/2017 8:38 AM Care Teams Credit Risk Associate Relationship Specialty Start Date End Date Carolee Corona MD [address] [place] [address] PCP - General 08/14/17
--- OUTSIDE RECORDS SUMMARY | 2025-04-03 00:30 | XMS_ITS | Clinical Summary ---
Author Organization [facility] Address [address] [place] [address] Care Team Providers Care Release Manager Name Role Phone Carolee Corona MD Primary Care Provider [phone] Allergies No known active allergies Medications fenofibrate [...] on file Legal Sex Male 1:26 PM PLATE STRAIGHTENER Gender Identity Not on file Sexual Orientation Not on file Obstetrics History Last Filed Vital Signs Vital Sign Reading Time Taken Comments Blood Pressure 132/93 09/11/2017 1:31 PM PLATE STRAIGHTENER Pulse 106 09/11/2017 1:31 PM PLATE STRAIGHTENER Temperature - - Respiratory Rate - - Oxygen Saturation 96% 09/04/2017 8:20 AM PLATE STRAIGHTENER Inhaled Oxygen Concentration - - Weight 106.6 kg (234 lb 15.8 oz) 09/03/2017 4:55 PM PLATE STRAIGHTENER Height 182.9 cm (6') 09/03/2017 4:55 PM PLATE STRAIGHTENER Body Mass Index 31.87 09/03/2017 4:55 PM PLATE STRAIGHTENER Plan of Treatment Not on file Insurance MEDICARE MEDICARE Advance Directives For more information, please contact: [phone] Documents on File Type Date Recorded Patient Cheese Sprayer Expl anation ADVANCE DIRECTIVE 09/13/2017 8:38 AM Care Teams Release Manager Relationship Specialty Start Date End Date Carolee Corona MD [address] [place] [address] [facility] - General 08/14/17
--- OUTSIDE RECORDS SUMMARY | 2025-04-03 00:30 | XMS_ITS | Clinical Summary ---
Author Organization [facility] Address [address] [place] [address] Care Team Providers Care Supply Chain Engineer Name Role Phone Smooth Baron MD Primary Care Provider [phone] Adiel Vizcarra MD Unavailable [phone] Nathalie Mckenzie MD Unavailable [phone] Source Comments [facility],non-owned Affiliates and Associated Physician Practices is amultiple site organization consisting of ambulatory clinics and hospital sitesin [place], [place], [place] and [place]. This disclosure is being madepursuant to the Care Everywhere program and may not contain all information available regarding this patient. Last updated 18.[facility] Allergies No known active allergies Medications * [...] daily 60 capsule 2 Active HYDROcodone-edison taminophen ([place]) 10-325 MG tablet TAKE HALF TO ONE [...] on file Legal Sex Male 1:59 PM BRAND DIRECTOR Gender Identity Not on file Sexual Orientation [...] this topic Medical Devices Implanted Type Area Holiday Detector Operator Device Identifier Shelf Expiration Date Model / Serial / Lot Cmnt Bone Djo Srg Cblt 40gm Hvisc Strl Implanted:Qty: 2 on 04/10/2022 by Adiel Vizcarra MD at [facility] Left: Knee [employer] 04/06/2023 600-15-000 / / [id number] Tray Tib 83mm Kn Cocr I Beam Implanted:Qty: 1 on 04/10/2022 by Adiel Vizcarra MD at [facility] Left: Knee [employer] 02/25/2031 [id number] / / [id number] Cmpnt Fem Kn Lt Cr Cmnt Prm Vngrd Intlk Implanted:Qty: 1 on 04/10/2022 by Adiel Vizcarra MD at [facility] Left: Knee [employer] 09/08/2027 [id number] / / [id number] Cmpnt Ptlr 28mm 1 Pg Wire Ascnt Arcm Kn Implanted:Qty: 1 on 04/10/2022 by Adiel Vizcarra MD at [facility] Left: Knee [employer] 03/02/2027 [id number] / / [id number] Vngrd Arcm Kn Ant Stab Implanted:Qty: 1 on 04/10/2022 by Adiel Vizcarra MD at [facility] Left: Knee [employer] 02/06/2027 [id number] / / [id number] Insurance MEDICARE [employer] GENERIC Advance Directives * Full Code (Latest Code Status on File) Date Activated Date Inactivated Comments 04/10/2022 12:47 PM 04/11/2022 2:44 PM Care Teams Supply Chain Engineer Relationship Specialty Start Date End Date Smooth Baron MD [address] [place] [address] PCP - General Internal Medicine 12/13/21 [place] [address] [place] [address] Surgeon Orthopedic Surgery 12/13/21 [place] [address] [place] [address] Cardiovascular Disease 03/22/22
--- OUTSIDE RECORDS SUMMARY | 2025-04-03 00:30 | XMS_ITS | Encounter Summary ---
Author Organization [facility] Address [address] [place] [address] Phone Care Team Providers Care General Cleaner Name Role Phone Carolee Corona MD Primary Care Provider [phone] Encounter Details Date Type Department Care Team (Late st Contact Info) Description 06/21/2020 Telephone [facility]) - [facility] Urology [address] [place] [address] Medical Office Building [address] [place] [phone] Elissa Duque MA Social History Tobacco Use Types Packs/Day Years Used Date Smoking Tobacco: Every Day Sex and Gender Information Value Date Recorded Sex Assigned at Not on file 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
[2025-04-03] MEDS: ACETAMINOPHEN 500 MG TABLET 1000 MG PO (13:27)
[2025-04-03] MEDS: KETOROLAC 15 MG/ML VIAL (*BKC) IV PUSH (13:28)
[2025-04-03] MEDS: LACTATED RINGERS 1,000 ML 30 ML IV CONT ×2 (13:30→18:00)
--- NOTE | 2025-04-03 13:42 | P.PNAN_ITS ---
Anes - Initial Pre Proc Eval Procedure: Operation Date: 04/03/25 14:30 Proposed Procedures p Open Left Inguinal Hernia Repair with Mesh - Danish Asif MD s Open Reducible Periumbilical Incisional Hernia Repair, Possible Mesh - Danish Asif MD Date/Time: 04/03/25 13:42 Surgeon: Danish Asif MD Pre Op Diagnosis: Lt Ing Hernia, reduc latoya umb , Incisional Hernia Patient Data Age: 74 Gender: M Height: 1.79 m Weight: 109.8 kg Last Vital Signs Temp 37.3 C 04/03/25 13:05 Pulse 96 04/03/25 13:20 Resp 20 04/03/25 13:05 BP 139/85 04/03/25 13:05 Pulse Ox 99 04/03/25 13:05 O2 Del Method Room Air 04/03/25 13:05 Allergies Allergy/AdvReac Type Severity Reaction Status Date / Time No Known Allergies Allergy Verified 04/01/25 08:50 Home Medications ?Medication ?Instructions ?Recorded ?Confirmed ?Type loratadine-pseudoephedrine ER 10 1 tablet PO DAILY #30 tabs 08/20/19 04/01/25 Rx mg-240 mg tablet,extended [id number] (Claritin-D 24 Hour) amlodipine 10 mg tablet 10 mg PO DAILY #30 tabs 01/19/20 04/01/25 Rx loratadine-pseudoephedrine ER 10 1 tablet PO DAILY PRN allergy 02/24/20 04/01/25 Rx mg-240 mg tablet,extended symptoms #30 tabs [id number] (Claritin-D 24 Hour) fenofibrate 160 mg tablet See Rx Instructions .Route 05/05/20 04/01/25 Rx .COMPLEX #30 tabs acetaminophen 650 mg 1,300 mg PO Q12H PRN pain 04/01/25 04/01/25 History tablet,extended release (8 Hour Pain Reliever) celecoxib 200 mg capsule 200 mg PO DAILY 04/01/25 04/01/25 History hydrocodone 5 mg-acetaminophen 325 1 - 2 tablet PO Q6H PRN pain #30 04/01/25 Rx mg tablet tabs Patient hx anesthesia problems: none Family hx anesthesia problems: none Results Review: All pre-operative results and documents have been reviewed as part of the pre- operative evaluation. [facility] Past Medical History Medical History (Updated 04/03/25 @ 13:42 by Chato Pride MD) Hyperlipidemia HTN (hypertension) Obesity Family History Family History Mother Acute myocardial infarction Social History Social History (Updated 04/03/25 @ 13:43 by Chato Pride MD) Smoking status: Current some day smoker Additional smoking assessment comments: SMOKES CIGARS 1 PER WK Living arrangements: with family Spiritual care concerns: No Anes - Eval Final PreProcedure Day of Procedure 04/03/25 13:42 Patient weight: obese Heart: regular rate and rhythm Lungs: clear to auscultation Airway: Mallampati scale class II Neurological: alert and oriented Last oral intake: >/= 8 hours ASA classification: III Emergent: no Anesthetic plan: proceed Anesthesia type and monitoring: general ETT and standard monitoring Results Review: All pre-operative results and documents have been reviewed as part of the pre-operative evaluation. Informed Consent: The patient's anesthetic plan and its attendant risks and benefits were discussed with the patient/family/POA. Questions were solicited and answers provided to the satisfaction of the patient/family/POA.
--- NOTE | 2025-04-03 13:58 | WPDHPUPDATE1 ---
History and Physical Update Update Date/Time: 04/03/25 13:58 History and Physical has been reviewed, including an updated exam of the patient. There are NO changes in the patient's condition. Risks, benefits, and alternatives have been discussed and questions answered. Patient agrees to proceed with procedure.
[2025-04-03] MEDS: ceFAZolin 2 GM in SODIUM CHLORIDE 0.9% IV 50 ML 100 ML IVPB (14:20)
[2025-04-03] MEDS: BUPivacaine HCL 0.5% 10 ML AMP 30 ML INFILTRATE (14:50)
[2025-04-03] MEDS: LIDO 1%/EPINEPHRINE 1:100,000 20 ML VIAL 30 ML INFILTRATE (14:51)
--- NOTE | 2025-04-03 17:12 | PM.OP ---
Procedure Note - Brief Procedure Note - Brief Date of procedure: 04/03/25 Left inguinal hernia and incarcerated periumbilical incisional hernia Procedure performed: Open left inguinal hernia repair with Ultrapro hernia system mesh Open incarcerated periumbilical incisional hernia repair with Ventralex ST mesh (6.4 cm shawnee) Surgeon: Danish Asif MD Professor Of Business Administration: USMAN Suazo Anesthesia: GLMA Implants: Prolene Ultrapro hernia system mesh, extended oval (left groin) Ventralex ST mesh (6.4 cm) shawnee periumbilical abdominal wall Drains: No Packing: No Pathology: None sent Complications: No immediate complications Condition: Stable Disposition: PACU
--- NOTE | 2025-04-03 18:26 | P.OP_ITS ---
Procedure Note - Detailed Date of Procedure 04/03/25 Pre-op Diagnosis Left inguinal hernia, incarcerated periumbilical ventral hernia Post-op Diagnosis Same Procedure Performed Open left inguinal hernia repair with Ultrapro hernia system mesh Open incarcerated incisional hernia repair with Ventralex ST mesh Surgeon Danish Asif MD Petrology Teacher Ruchi MARY Anesthesia General Indications Patient is a 74-year-old gentleman who had previously undergone a robotic assisted laparoscopic prostatectomy. He has developed a small incisional hernia which is seems to be incarcerated with some fatty tissue in the periumbilical extraction site incision. Last weekend he presented to the emergency room with the incarcerated left inguinal hernia containing a portion of the sigmoid colon. The colon was able to be reduced in the emergency room. The patient presents now for repair of the left inguinal hernia as well as the incarcerated periumbilical incisional hernia. Findings Patient had a the large indirect left inguinal hernia. He also had a incarcerated periumbilical ventral incisional hernia with incarcerated omentum. The omentum was viable. The defect measured approximately 2cm in diameter. Description of Procedure After informed consent was obtained patient brought to the operating room was placed supine position and general endotracheal anesthesia was administered. Th e abdomen and bilateral groin regions were then prepped and draped usual sterile fashion. A time-out was then performed correctly identifying the patient as well as the procedure to be performed. Site marking was verified he was given perioperative IV antibiotics. First started procedure by injecting 1% lidocaine mixed with 0.5% Marcaine in the area the left groin region at the intended incision. I then made a transverse incision about 2 finger breaths above the left pubic tubercle. Dissection was carried down through to the subcutaneous tissues and Donna's fascia with electrocautery. The external oblique aponeurosis was encountered in the subcutaneous tissues were dissected off the external oblique aponeurosis. The external ring was identified. I then incised the external oblique aponeurosis the scalp was then opened widely out through the external ring utilizing electrocautery. I then the external oblique aponeurosis from the internal oblique muscle and cremasteric muscle fibers with electrocautery dissection. I then proceeded to isolate the cord structures at the pubic tubercle with blunt finger dissection. A [place] drain was then placed around the cord structures to aid with retraction. I then further divided cremasteric muscle fibers to further mobilize the cord. I then looked at the floor of the inguinal canal and appeared to be intact without anup dence of a direct defect. I then explored the cord dividing cremasteric muscle fibers and identified a moderately large cord lipoma. This was dissected free of the vas deferens and testicular vessels and amputated at the level of the internal ring and it was discarded. I then identified the vas deferens and testicular vessels and then this from the indirect inguinal hernia sac. The hernia sac was then reduced back into the preperitoneal space to the dilated internal ring. I then chose a piece of Ultrapro hernia system mesh which was an extended oval configuration for the underlay mesh. The mesh was then placed through the dilated internal ring into the preperitoneal space. Underlay portion of mesh was then spread out widely to cover the home myopectineal orifice. The cylindrical portion of mesh came through the dilated internal ring and then the overlay portion of mesh was then laid out over the floor of the inguinal canal. A slit was then cut near overlay patch to a ccommodate the cord structures. The edges of the patch were reapproximated around the cord utilizing interrupted 2-0 Vicryl sutures. The tail of the patch was then tucked underneath the external oblique aponeurosis proximally. I then secured the overlay patch the tissues around the pubic tubercle utilizing a 2-0 Vicryl suture. Medially the overlay patch was secured to the internal oblique muscle fibers and then laterally the overlay patch was secured to the shelving edge of the external oblique aponeurosis utilizing interrupted 2-0 Vicryl sutures. The mesh laid out very nicely without any tension. I then irrigated out the inguinal canal sterile saline solution hemostasis was good. I then closed the external oblique aponeurosis utilizing a running 3-0 Vicryl suture over the mesh. The external ring was recreated left widely patent. I then injected 1% lidocaine mixed with 0.5% Marcaine with some epinephrine underneath the external oblique aponeurosis. Then closed the Donna's fascial layer utilizing interrupted 3-0 Vicryl sutures. The more superficial subcutaneous tissues then closed utilizing layers of interrupted 3-0 Vicryl sutures. The skin edges were then approximated utilizing a running subcuticular 4-0 Monocryl suture. I then turned my attention towards repairing the incarcerated periumbilical incisional hernia. A small curved incision was made around the upper portion of the umbilicus with a scalpel and then dissection carried down through the dermis skin with a scalpel. I then dissected down into the subcutaneous tissues until I encountered the hernia sac. I then encircled hernia sac with blunt clamp dissection and then disconnected the overlying dermis of the umbilicus from the hernia sac. This done with electrocautery. The hernia sac was then opened to reveal incarcerated viable omentum. The omentum was released from the hernia sac and reduced back into the abdomen. The hernia sac was then resected down to the level of the fascial defect and discarded. Then placed my index finger into the abdomen through the defect and swept underneath the anterior abdominal wall. Couple of omental adhesions were then taken down with blunt finger and electrocautery dissection. I then felt that a Ventralex ST piece of mesh measuring 6.4cm in diameter in a circular configuration would be good for the repair. The mesh was placed through the defect into the abdomen and then spread out with good overlap of at least 4cm from the edge of the defect in all directions. Traction was held on the mesh straps to approximate the mesh to the undersurface of the anterior abdominal wall. There is no incarceration of intra-abdominal contents between the mesh in the undersurface of the anterior abdominal wall. The mesh was placed such that the prosthetic surface the mesh was in contact with the peritoneum and the barrier surface mesh was facing the intra-abdominal viscera. I then proceeded to secure the mesh to the edges of the fascia utilizing transfascial 0 Ethibond sutures in all 4 quadrants. The excess portion of the mesh straps was then cut away. I then checked and again there was no evidence of incarceration of the intra-abdominal contents between the mesh in the anterior abdominal wall. I then placed some interrupted 2-0 Vicryl sutures to close some fatty subcutaneous tissue over the fascial defect and mesh. I then recreated the inverted umbilicus by tacking down the dermis of the umbilicus to the deeper tissue structures with a 3-0 Vicryl suture. Additional interrupted 2-0 Vicryl sutures were then used to close the subcuta neous tissues. A layer of interrupted 3-0 Vicryl sutures were also placed. The skin edges were then approximated utilizing a running subcuticular 4-0 Monocryl suture. The incision was then cleaned the skin glue was applied. Skin glue was also applied to the left inguinal hernia repair incision as well. A scrotal support was then placed onto the patient and abdominal binder was placed on the patient as well. The patient tolerated the procedure well no complications. All sponges, needles, and instrument counts were correct at the end procedure. EBL was _25__cc. The patient was awakened and taken to recovery in stable and satisfactory condition. Implants Ultrapro hernia system mesh (extended oval) left groin. Ventralex ST mesh 6.4cm te-moak placed periumbilical abdominal wall Estimated Blood Loss 5 Drains No Packing No Pathology None sent Complications No immediate complications Condition Stable Disposition PACU [facility] Billing Surgery - Charge Forward: Surgery Billing
[2025-04-03] MEDS: oxyCODONE HCL (*CRX) 5 MG TAB IR PO (18:49)
== END 2025-04-03 19:07 | disposition home or self-care (01) ==
PROVIDERS: PCP Internal Medicine; Visit Provider Surgery
PROC: (CPT 49505; principal; 2025-04-03 14:30)
PROC: 0WQF0ZZ Repair Abdominal Wall, Open Approach (ICD-10-PCS; CPT 49505; 2025-04-03 14:30)
DX: K40.90 Unilateral inguinal hernia, without obstruction or gangrene, not specified as recurrent (principal); K43.0 Incisional hernia with obstruction, without gangrene; Z72.0 Tobacco use; E66.9 Obesity, unspecified; Z68.34 Body mass index [BMI] 34.0-34.9, adult
CPT/HCPCS: 49505; 49592; J0690; A9270; C1781; J1100; J1171; J1885; J2003; J2004; J2405; J2704; J3010; J7120

== ENCOUNTER 2025-08-13 06:47 | Outpatient (CLI) | payer MEDICARE, SELFPAY ==
--- OUTSIDE RECORDS SUMMARY | 2025-08-13 06:51 | XMS_ITS | Clinical Summary ---
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 Gender Identity Not on file Sexual Orientation Not on file Last Filed Vital Signs Vital Sign Reading Time Taken Comments Blood Pressure 132/93 09/11/2017 1:31 PM DOOR HANGER Pulse 106 09/11/2017 1:31 PM DOOR HANGER Temperature - - Respiratory Rate - - Oxygen Saturation 96% 09/04/2017 8:20 AM DOOR HANGER Inhaled Oxygen Concentration - - Weight 106.6 kg (234 lb 15.8 oz) 09/03/2017 4:55 PM DOOR HANGER Height 182.9 cm (6') 09/03/2017 4:55 PM DOOR HANGER Body Mass Index 31.87 09/03/2017 4:55 PM DOOR HANGER Plan of Treatment Not on file Insurance MEDICARE MEDICARE Advance Directives For more information, please contact: [phone] Documents on File Type Date Recorded Patient Light Rail Signal Technician Expl anation ADVANCE DIRECTIVE 09/13/2017 8:38 AM Care Teams Roofer Metal Relationship Specialty Start Date End Date Carolee Corona MD [address] [place] [address] [facility] - General 08/14/17
--- OUTSIDE RECORDS SUMMARY | 2025-08-13 06:51 | XMS_ITS | Encounter Summary ---
Author Organization [facility] Address [address] [place] [address] Phone Care Team Providers Care Flute Polisher Name Role Phone Carolee Corona MD Primary Care Provider [phone] Encounter Details Date Type Department Care Team (Late st Contact Info) Description 06/21/2020 Telephone [facility]) - [facility] Medicine Urology [address] [place] [address] Medical Office Building [address] [place] [address] Elissa Duque MA Social History Tobacco Use Types Packs/Day Years Used Date Smoking Tobacco: Every Day Sex and Gender Information Value Date Recorded Sex Assigned at Not on file Legal Sex Male 1:26 PM CHILDREN'S MINISTRY DIRECTOR Gender Identity Not on file Sexual Orientation Not on file documented as of this encounter Plan of Treatment Not on file documented as of this encounter Visit Diagnoses Not on filedocumented in this encounter Care Teams Flute Polisher Relationship Specialty Start Date End Date Carolee Corona MD [address] [place] [address] PCP - General 08/14/17 documented as of this encounter
--- OUTSIDE RECORDS SUMMARY | 2025-08-13 06:51 | XMS_ITS | Clinical Summary ---
Author Organization [facility] Address [address] [place] [address] Care Team Providers Care Public Accountant Name Role Phone Smooth Baron MD Primary Care Provider [phone] Adiel Vizcarra MD Unavailable [phone] Nathalie Mckenzie MD Unavailable [phone] Source Comments [facility],non-owned Affiliates and Associated Physician Practices is amultiple site organization consisting of ambulatory clinics and hospital sitesin [place], [place], [place] and [place]. This disclosure is being madepursuant to the Care Everywhere program and may not contain all information available regarding this patient. 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 Gender Identity Not on file Sexual Orientation [...] AAA SCREENING 2016 SCREENING FOR DIABETES 12/13/2021 DEPRESSION SCREENING 09/24/2024 COVID-19 VACCINE (3 - 2024-2 6 season) 2025 12/24/2020, 11/26/2020 INFLUENZA VACCINE (#1) 2025 06/21/2020 Respiratory Syncytial [...] this topic Medical Devices Implanted Type Area Property Utilization Officer Device Identifier Shelf Expiration Date Model / Serial / Lot Cmnt Bone Djo Srg Cblt 40gm Hvisc Strl Implanted:Qty: 2 on 04/10/2022 by Adiel Vizcarra MD at [facility] Left: Knee [employer] 04/06/2023 600-15-000 / / [id number] Tray Tib 83mm Kn Cocr I Beam Implanted:Qty: 1 on 04/10/2022 by Adiel Vizcarra MD at [facility] Left: Knee [employer] 02/25/2031 [id number] / / [id number] Cmpnt Fem Kn Lt Cr Cmnt Prm Vngrd Intlk Implanted:Qty: 1 on 04/10/2022 by Adiel Vizcarra MD at [facility] Left: Knee [employer] 09/08/2027 [id number] / / [id number] Cmpnt Ptlr 28mm 1 Pg Wire Ascnt Arcm Kn Implanted:Qty: 1 on 04/10/2022 by Adiel Vizcarra MD at [facility] Left: Knee [employer] 03/02/2027 [id number] / / [id number] Vngrd Arcm Kn Ant Stab Implanted:Qty: 1 on 04/10/2022 by Adiel Vizcarra MD at [facility] Left: Knee [employer] 02/06/2027 [id number] / / [id number] Insurance MEDICARE [employer] GENERIC Advance Directives * Full Code (Latest Code Status on File) Date Activated Date Inactivated Comments 04/10/2022 12:47 PM 04/11/2022 2:44 PM Care Teams Public Accountant Relationship Specialty Start Date End Date Smooth Baron MD [address] [place] [address] PCP - General Internal Medicine 12/13/21 [place] [address] [place] [address] Surgeon Orthopedic Surgery 12/13/21 [place] [address] [place] [address] Cardiovascular Disease 03/22/22
[2025-08-13 07:13] LABS: Hematocrit 44.4 % (37.0-46.0); Hemoglobin 15.2 g/dL (12.4-15.3); Mean Corpuscular HGB Conc 34.2 g/dL (32-36); Mean Corpuscular Hemoglobin 32.3 pg (27.0-31.0); Mean Corpuscular Volume 94.3 fL (78.0-102.0); Platelet Count Result 388 K/mm3 (150-420); Red Blood Count 4.71 M/mm3 (4.70-6.10); White Blood Count 5.6 K/mm3 (4.8-10.8)
[2025-08-13 07:14] LABS: Add Urine Microscopic? NO; Appearance Urine Clear (Clear); Glucose Urine UA Negative (Negative); Leukocyte Esterase Ur Negative LEU/UL (Negative); Nitrate Urine Negative (Negative); Specific Grav Ur 1.015 (1.010-1.020)
[2025-08-13 07:53] LABS: Alanine Aminotransferase 32 U/L (6-50); Albumin Level 4.5 g/dL (3.5-5.1); Alkaline Phosphatase 55 U/L (38-126); Anion Gap 8 mmol/L (4-12); Aspartate Amino Transferase 28 U/L (17-59); Bilirubin,Total 0.6 mg/dL (0.2-1.3); Blood Urea Nitrogen 18 mg/dL (9-20); Calcium 9.4 mg/dL (8.4-10.2); Carbon Dioxide 28 mmol/L (22-30); Chloride 107 mmol/L (98-107); Cholesterol 115 mg/dL (0-200); Estimated Glomerular Filt Rate 56; Glucose 115 mg/dL (65-110); HDL Direct 50 mg/dL; Osmolality Calculated 298 mOsm/kg (285-295); Potassium 4.5 mmol/L (3.4-5.0); Sodium 143 mmol/L (137-145); Total Protein 7.0 g/dL (6.3-8.2); Triglycerides 106 mg/dL (<150)
[2025-08-13 07:55] LABS: Hemoglobin A1C 5.8 % (<5.7)
== END 2025-08-13 06:48 | disposition home or self-care (01) ==
LOC: CHSLAB 06:50
PROVIDERS: PCP Internal Medicine; Visit Provider Internal Medicine
DX: E78.2 Mixed hyperlipidemia (principal); R73.01 Impaired fasting glucose; N39.0 Urinary tract infection, site not specified
CPT/HCPCS: 36415; 80053; 80061; 81003; 83036; 85027

== ENCOUNTER 2025-08-21 10:57 | Outpatient (CLI) | payer MEDICARE, SELFPAY ==
--- NOTE | ~2025-08-21 | XR_ITS ---
Examination: XR chest 2V Clinical History: SOB, Wheezing, cough x1 day Comparison: 01/26/2025 Technique: PA and Lateral Findings: Cardiomediastinal silhouette normal size and configuration. Lungs clear. No acute bony abnormality. IMPRESSION: 1. No acute cardiopulmonary findings. Reviewed, dictated and finalized at location R. T MANAGER ASSISTANT
--- OUTSIDE RECORDS SUMMARY | 2025-08-21 11:01 | XMS_ITS | Clinical Summary ---
Author Organization [facility] [employer] Address [address] [place] [address] Care Team Providers Care Automation Technologist Name Role Phone Smooth Baron MD Primary Care Provider [phone] Adiel Vizcarra MD Unavailable Nathalie Mckenzie MD Unavailable [phone] Source Comments [facility],non-owned Affiliates and Associated Physician Practices is amultiple site organization consisting of ambulatory clinics and hospital sitesin [place], [place], [place] and [place]. This disclosure is being madepursuant to the Care Everywhere program and may not contain all information available regarding this patient. 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 Gender Identity Not on file Sexual [...] this topic Medical Devices Implanted Type Area Wire Threader Device Identifier Shelf Expiration Date Model / Serial / Lot Cmnt Bone Djo Srg Cblt 40gm Hvisc Strl Implanted:Qty: 2 on 04/10/2022 by Adiel Vizcarra MD at [facility] Left: Knee [employer] 04/06/2023 600-15-000 / / [id number] Tray Tib 83mm Kn Cocr I Beam Implanted:Qty: 1 on 04/10/2022 by Adiel Vizcarra MD at [facility] Left: Knee [employer] 02/25/2031 [id number] / / [id number] Cmpnt Fem Kn Lt Cr Cmnt Prm Vngrd Intlk Implanted:Qty: 1 on 04/10/2022 by Adiel Vizcarra MD at [facility] Left: Knee [employer] 09/08/2027 [id number] / / [id number] Cmpnt Ptlr 28mm 1 Pg Wire Ascnt Arcm Kn Implanted:Qty: 1 on 04/10/2022 by Adiel Vizcarra MD at [facility] Left: Knee [employer] 03/02/2027 [id number] / / [id number] Vngrd Arcm Kn Ant Stab Implanted:Qty: 1 on 04/10/2022 by Adiel Vizcarra MD at [facility] Left: Knee [employer] 02/06/2027 [id number] / / [id number] Insurance MEDICARE [employer] GENERIC Advance Directives * Full Code (Latest Code Status on File) Date Activated Date Inactivated Comments 04/10/2022 12:47 PM 04/11/2022 2:44 PM Care Teams Automation Technologist Relationship Specialty Start Date End Date Smooth Baron MD [address] [place] [address] PCP - General Internal Medicine 12/13/21 [place] [address] [place] [address] Surgeon Orthopedic Surgery 12/13/21 [place] [address] [place] [address] Cardiovascular Disease 03/22/22
--- OUTSIDE RECORDS SUMMARY | 2025-08-21 11:01 | XMS_ITS | Encounter Summary ---
Author Organization [facility] Address [address] [place] [address] Phone Care Team Providers Care Unified Communications Engineer Name Role Phone Carolee Corona MD Primary Care Provider [phone] Encounter Details Date Type Department Care Team (Late st Contact Info) Description 06/21/2020 Telephone [facility]) - [facility] Medicine Urology [address] [place] [address] Medical Office Building [address] [place] [address] Elissa Duque MA Social History Tobacco Use Types Packs/Day Years Used Date Smoking Tobacco: Every Day Sex and Gender Information Value Date Recorded Sex Assigned at Not on file 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
--- OUTSIDE RECORDS SUMMARY | 2025-08-21 11:01 | XMS_ITS | Clinical Summary ---
Author Organization 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 CORRECTIONS Gender Identity Not on file Sexual Orientation Not on file Last Filed Vital Signs Vital Sign Reading Time Taken Comments Blood Pressure 132/93 09/11/2017 1:31 PM RN CORRECTIONS Pulse 106 09/11/2017 1:31 PM RN CORRECTIONS Temperature - - Respiratory Rate - - Oxygen Saturation 96% 09/04/2017 8:20 AM RN CORRECTIONS Inhaled Oxygen Concentration - - Weight 106.6 kg (234 lb 15.8 oz) 09/03/2017 4:55 PM RN CORRECTIONS Height 182.9 cm (6') 09/03/2017 4:55 PM RN CORRECTIONS Body Mass Index 31.87 09/03/2017 4:55 PM RN CORRECTIONS Plan of Treatment Not on file Insurance MEDICARE MEDICARE Advance Directives For more information, please contact: [phone] Documents on File Type Date Recorded Patient Director Of Cardiopulmonary Services Expl anation ADVANCE DIRECTIVE 09/13/2017 8:38 AM Care Teams Wiper Blender Relationship Specialty Start Date End Date Carolee Corona MD [address] [place] [address] [facility] - General 08/14/17
[2025-08-21 11:13] LABS: Hematocrit 43.0 % (37.0-46.0); Hemoglobin 14.8 g/dL (12.4-15.3); Mean Corpuscular HGB Conc 34.4 g/dL (32-36); Mean Corpuscular Hemoglobin 32.0 pg (27.0-31.0); Mean Corpuscular Volume 92.9 fL (78.0-102.0); Platelet Count Result 388 K/mm3 (150-420); Red Blood Count 4.63 M/mm3 (4.70-6.10); White Blood Count 10.2 K/mm3 (4.8-10.8)
[2025-08-21 11:27] LABS: Alanine Aminotransferase 40 U/L (6-50); Albumin Level 4.8 g/dL (3.5-5.1); Alkaline Phosphatase 56 U/L (38-126); Anion Gap 9 mmol/L (4-12); Aspartate Amino Transferase 37 U/L (17-59); Bilirubin,Total 0.9 mg/dL (0.2-1.3); Blood Urea Nitrogen 10 mg/dL (9-20); Calcium 9.4 mg/dL (8.4-10.2); Carbon Dioxide 28 mmol/L (22-30); Chloride 106 mmol/L (98-107); Estimated Glomerular Filt Rate > 60; Glucose 95 mg/dL (65-110); Osmolality Calculated 295 mOsm/kg (285-295); Potassium 3.7 mmol/L (3.4-5.0); Sodium 143 mmol/L (137-145); Total Protein 7.4 g/dL (6.3-8.2)
== END 2025-08-21 10:58 | disposition home or self-care (01) ==
LOC: CHSLAB 10:58
PROVIDERS: PCP Internal Medicine; Visit Provider Nurse Practitioner Family
DX: R06.02 Shortness of breath (principal); R06.2 Wheezing; R05.9 Cough, unspecified
CPT/HCPCS: 36415; 71046; 80053; 85027